=== PATIENT | male | born 1950 | race Two or more races ===

== ENCOUNTER → 2016-12-28 | Outpatient (CLI) | payer BC ==
[~2016-12-28] MED LIST: ALPR0.5T6 PO; DOXA4TAB3 PO; HYDR-2869 PO; IOHEXOL 240 MG/ML 50ML VIAL. ONE; IOHEXOL 300 MG/ML 75 ML VIAL. IV ONE; LISI40TA PO; METO25TA9 PO; NALO25TA PO; OMEP40CA5 PO; OXYC30TA PO; OXYC60TA7 PO
--- NOTE | 2016-12-28 14:06 | RAD ---
CT chest without, CT abdomen and pelvis with contrast 12/28/2016. Comparison: None. Clinical indication: Lung nodule. Technique: CT helical acquisition of the chest was obtained without contrast. Coronal and sagittal reformations were obtained. Multiple CT images of the abdomen and pelvis were obtained following uneventful intravenous administration of 75 mL Omnipaque 300. PQRS Compliance Statement: One or more of the following individualized dose reduction techniques were utilized for this examination: 1. Automated exposure control 2. Adjustment of the mA and/or kV according to patient size 3. Use of iterative reconstruction technique Findings: Chest: Heart size is normal without significant pericardial effusion. The thoracic aorta is normal in caliber with mild calcified atheromatous disease. Incidental note is made of separate origin of the left vertebral artery off the aortic arch, a normal variant. Three-vessel coronary artery calcifications. No axillary, mediastinal or hilar lymphadenopathy. The central airways are patent. There is mild centrilobular emphysema. There is a 6 mm noncalcified nodule in the lingula of the left upper lobe (series 5/image 177). There are patchy subpleural reticular opacities in both lung bases, likely scarring or atelectasis. There is a 5 mm linear subpleural opacity in the anterior right middle lobe which is favored to represent scarring. There are no destructive osseous lesions. Abdomen and pelvis: There is a 1.2 cm peripheral hepatic segment 7 have a density at the dome (series 2/image 8), unchanged since 04/12/2016 examination. No additional focal hepatic lesion. Prior cholecystectomy. No intra or extrahepatic biliary ductal dilatation. Major portal, splenic and visualized upper sparing mesenteric veins are widely patent. Spleen, adrenal glands unremarkable. Moderate fatty atrophy of the pancreas. Kidneys within normal limits. Prior there are no bifemoral bypass graft which is chronically occluded. [place] abdominal aorta is widely patent. No retroperitoneal or mesenteric lymphadenopathy. No abdominal free fluid. Small and large bowel loops are normal in caliber without obstruction. Mildly distended and unopacified urinary bladder, prostate seminal vesicles are unremarkable. No iliac or inguinal lymphadenopathy. No pelvic free fluid. Partial anterior ankylosis at L4-L5 and straightening of the lumbar spine. No destructive osseous lesions. Impression: Chest: 1. Stable 6 mm left upper lobe noncalcified pulmonary nodule since at least 06/01/2016 with no new pulmonary nodule. Follow-up noncontrast CT examination in 12 months is recommended to assess for stability. 2. Pulmonary emphysema. Abdomen and pelvis: 1. Stable small hepatic segment 7 hypodensity, consider benign in the absence of known or suspected malignancy.
== END | disposition home or self-care (01) ==
LOC: CT 10:49
PROVIDERS: ATTEND Family Medicine
DX: D37.6 Neoplasm of uncertain behavior of liver, gallbladder and bile ducts (principal); J43.9 Emphysema, unspecified; J43.2 Centrilobular emphysema; R91.1 Solitary pulmonary nodule; K86.89 Other specified diseases of pancreas
CPT/HCPCS: 71250; 74177; Q9966; Q9967

== ENCOUNTER → 2017-02-08 | Outpatient (CLI) | payer BC ==
[~2017-02-08] MED LIST changes: -IOHEXOL 240 MG/ML 50ML VIAL. ONE; -IOHEXOL 300 MG/ML 75 ML VIAL. IV ONE
--- NOTE | 2017-02-08 13:52 | RAD ---
CT abdomen/pelvis without contrast 02/08/2017 at 1331 hours Indication: Left flank pain for one week. Comparison: CT abdomen/pelvis 12/28/2016 Technique: Multiple axial CT images of the abdomen and pelvis were obtained without intravenous contrast. Coronal and sagittal reformats are provided. Findings:. There is dependent atelectasis at the right lung base. Heart size is within normal limits. The lack of intravenous contrast limits evaluation of the solid abdominal viscera. There are no suspicious hepatic masses. There is a stable hypodense lesion in the right hepatic dome felt to represent a simple hepatic cyst measuring 12 mm. Spleen, bilateral adrenal glands, and pancreas are within normal limits. Gallbladder is surgically absent. There is an infrarenal abdominal aortic aneurysm which measures 3.2 cm x 2.2 cm. Bilateral iliac stent grafts are noted. Evaluation is limited without intravenous contrast. There are no enlarged lymph nodes in the abdomen or pelvis. There is no free fluid within the abdomen or pelvis. There is no free intraperitoneal air. The kidneys appear symmetric. There are no renal calculi identified. No calculi identified along the ureters or urinary bladder. Urinary bladder is suboptimally evaluated given the degree of distention. Prostate and seminal vesicles are within normal limits. Small and large bowel are normal in caliber. No pericolonic inflammatory changes are present. There is osseous fusion of L4-L5. Laminectomy changes are identified at L4-L5. No suspicious osseous lesions are identified. Impression: 1. Aortobifemoral bypass graft is again noted with ectasia of the infrarenal abdominal aorta. Evaluation is limited by lack of intravenous contrast. 2. No evidence for obstructive uropathy. No renal calculi are identified. No calculi identified along the ureters or urinary bladder. No hydronephrosis. PQRS Compliance Statement: One or more of the following individualized dose reduction techniques were utilized for this examination: 1. Automated exposure control 2. Adjustment of the mA and/or kV according to patient size 3. Use of iterative reconstruction technique
== END | disposition home or self-care (01) ==
LOC: CT 13:23
PROVIDERS: ATTEND Family Medicine
DX: I77.811 Abdominal aortic ectasia (principal); J98.11 Atelectasis; N32.89 Other specified disorders of bladder; Z98.890 Other specified postprocedural states
CPT/HCPCS: 74176

== ENCOUNTER → 2017-04-19 | Outpatient (CLI) | payer BC, MEDICARE, OTHER ==
[~2017-04-19] MED LIST changes: +METO-239 PO; -METO25TA9 PO
--- NOTE | 2017-04-19 16:55 | RAD ---
Ultrasound of the abdominal aorta 04/19/2017 Indication: Peripheral vascular disease. History of aortofemoral bypass. Comparison study: CT of the abdomen and pelvis with contrast December 20, 2016. Discussion: Ultrasound evaluation of the abdominal aorta was performed. Static images are submitted to PACS. Exam is limited by patient body habitus. Post surgical changes consistent with aortobifemoral bypass noted. Visualized proximal aorta and mid abdominal aorta are nonaneurysmal. An aortic by femoral bypass graft appears to be in place. Both lumens appear to be grossly patent. Impression: Status post aortobifemoral bypass. Bypass graft is grossly patent without demonstrable abnormality.
== END | disposition home or self-care (01) ==
LOC: US 15:53
PROVIDERS: ATTEND Family Medicine
DX: I73.9 Peripheral vascular disease, unspecified (principal); Z98.890 Other specified postprocedural states
CPT/HCPCS: 76770

== ENCOUNTER 2017-06-07 09:11 | Inpatient (IN) | payer MEDICARE ==
[~2017-06-07] VITALS: Ht 177.8 cm; Wt 101.2 kg
[2017-06-07] MEDS ORDERED: 0.9 % SODIUM CHLORIDE 10 ML DISP.SYRIN. IV PRN (09:30)
[2017-06-07 09:50] LABS: BASO % 1 % (0-3); EOS # 0.4 x10^3/uL (0.0-0.7); EOS % 8 % (0-3); HEMATOCRIT 42.1 % (39.0-53.0); HEMOGLOBIN 14.2 g/dL (13.0-17.5); LYMPH # 0.7 x10^3/uL (1.0-4.8); LYMPH % 14 % (24-48); MEAN CORPUSCULAR HEMOGLOBIN 30 pg (25-35); MEAN CORPUSCULAR HGB CONC 34 g/dL (31-37); MEAN CORPUSCULAR VOLUME 89 fL (79-100); MONO # 0.4 x10^3/uL (0.0-1.1); MONO % 8 % (0-9); NEUT # 3.4 x10^3uL (1.8-7.7); NEUT % 69 % (31-73); PLATELET COUNT 112 x10^3/uL (140-400); RED BLOOD COUNT 4.73 x10^6/uL (4.30-5.70); RED CELL DISTRIBUTION WIDTH 14.4 % (11.5-14.5); WHITE BLOOD COUNT 4.9 x10^3/uL (4.0-11.0)
[2017-06-07] MEDS ORDERED: IPRATRPIUM/ALBUTEROL 0.5/2.5MG 3 ML NEBU. NEB ONE ×2 (10:00→13:00)
[2017-06-07 10:08] LABS: ALBUMIN 3.5 g/dL (3.4-5.0); ALBUMIN/GLOBULIN RATIO 0.9 (1.0-1.7); CALCIUM 8.9 mg/dL (8.5-10.1); CREATININE 0.8 mg/dL (0.7-1.3); MAGNESIUM 1.9 mg/dL (1.8-2.4); POTASSIUM 4.9 mmol/L (3.5-5.1); TOTAL BILIRUBIN 0.6 mg/dL (0.2-1.0); TOTAL PROTEIN 7.3 g/dL (6.4-8.2)
--- NOTE | 2017-06-07 10:15 | RAD ---
INDICATION: sob COMPARISON: 03/17/2015 FINDINGS: 2 view of chest obtained. Suspected 6-7 mm nodule left lower lung. Cardiac silhouette is not grossly enlarged. Mild coarsening of the lung markings bilaterally. Mild haziness retrocardiac region. IMPRESSION: Mild haziness retrocardiac region. Could be secondary to overlap of structures or atelectasis but if there is high clinical concern for infection an early infiltrate is not excluded. Suspected left lower lung pulmonary nodule. Follow-up could be obtained to ensure no growth. Coarsened lung markings bilaterally. Could be secondary to chronic lung disease
--- NOTE | 2017-06-07 10:26 | PHYS DOC ---
Past History Past Medical History: COPD, Hypertension Smoking: Non-smoker Adult General Chief Complaint Chief Complaint: SHORTNESS OF BREATH HPI HPI 67-year-old male patient with history of COPD with when necessary home oxygen complaining of increasing exertional shortness of breath intermittently for the last 2 months with several antibiotic treatment. Patient complaining of increasing shortness of breath and productive cough with greenish sputum for the last 5 days that did not get better with doxycycline started by his primary care physician order 4 days ago. She complaining of chest soreness during episodes of cough and generalized weakness without fever, chills, vomiting, urinary symptom. Patient states he had a couple episodes of diarrhea yesterday without abdominal pain. Review of Systems Review of Systems Constitutional: Denies fever or chills [] Eyes: Denies change in visual acuity, redness, or eye pain [] HENT: Denies nasal congestion or sore throat [] Respiratory: Reports cough and shortness of breath [] Cardiovascular: No additional information not addressed in HPI [] GI: Denies abdominal pain, nausea, vomiting, bloody stools or diarrhea [] : Denies dysuria or hematuria [] Musculoskeletal: Denies back pain or joint pain [] Integument: Denies rash or skin lesions [] Neurologic: Denies headache, focal weakness or sensory changes [] Endocrine: Denies polyuria or polydipsia [] All other systems were reviewed and found to be within normal limits, except as documented in this note. Current Medications Current Medications Current Medications Medications (Trade) Dose Ordered Sig/Dagmar Start Time Stop Time Status Last Admin Dose Admin Albuterol/ Ipratropium (Duoneb) 3 ml 1X ONCE 06/07/17 10:00 06/07/17 10:01 DC Sodium Chloride (Normal Saline Flush) 10 ml QSHIFT PRN 06/07/17 09:30 Allergies Allergies Allergies Coded Allergies Type Severity Reaction Last Updated Verified No Known Drug Allergies 06/01/16 No Physical Exam Physical Exam Constitutional: Well developed, well nourished, mild distress, non-toxic appearance. [] HENT: Normocephalic, atraumatic, bilateral external ears normal, oropharynx moist, no oral exudates, nose normal. [] Eyes: PERRLA, EOMI, conjunctiva normal, no discharge. [] Neck: Normal range of motion, no tenderness, supple, no stridor. [] Cardiovascular:Heart rate regular rhythm, no murmur [] Lungs & Thorax: Decreased air movement bilaterally, mild wheezing and rhonchi bilaterally Abdomen: Bowel sounds normal, soft, no tenderness, no masses, no pulsatile masses. [] Skin: Warm, dry, no erythema, no rash. [] Back: No tenderness, no CVA tenderness. [] Extremities: No tenderness, no cyanosis, no clubbing, ROM intact, 1+ lower bilateral extremity edema. [] Neurologic: Alert and oriented X 3, normal motor function, normal sensory function, no focal deficits noted. [] Psychologic: Affect normal, judgement normal, mood normal. [] Current Patient Data Lab Results Laboratory Tests Test 06/07/17 09:32 White Blood Count 4.9 x10^3/uL (4.0-11.0) Red Blood Count 4.73 x10^6/uL (4.30-5.70) Hemoglobin 14.2 g/dL (13.0-17.5) Hematocrit 42.1 % (39.0-53.0) Mean Corpuscular Volume 89 fL (79-100) Mean Corpuscular Hemoglobin 30 pg (25-35) Mean Corpuscular Hemoglobin Concent 34 g/dL (31-37) Red Cell Distribution Width 14.4 % (11.5-14.5) Platelet Count 112 x10^3/uL (140-400) L Neutrophils (%) (Auto) 69 % (31-73) Lymphocytes (%) (Auto) 14 % (24-48) L Monocytes (%) (Auto) 8 % (0-9) Eosinophils (%) (Auto) 8 % (0-3) H Basophils (%) (Auto) 1 % (0-3) Neutrophils # (Auto) 3.4 x10^3uL (1.8-7.7) Lymphocytes # (Auto) 0.7 x10^3/uL (1.0-4.8) L Monocytes # (Auto) 0.4 x10^3/uL (0.0-1.1) Eosinophils # (Auto) 0.4 x10^3/uL (0.0-0.7) Basophils # (Auto) 0.0 x10^3/uL (0.0-0.2) Prothrombin Time 11.1 SEC (9.4-11.4) Prothrombin Time INR 1.1 (0.9-1.1) Sodium Level 141 mmol/L (136-145) Potassium Level 4.9 mmol/L (3.5-5.1) Chloride Level 102 mmol/L (98-107) Carbon Dioxide Level 35 mmol/L (21-32) H Anion Gap 4 (6-14) L Blood Urea Nitrogen 14 mg/dL (8-26) Creatinine 0.8 mg/dL (0.7-1.3) Estimated GFR (Cockcroft-Gault) 97.0 BUN/Creatinine Ratio 18 (6-20) Glucose Level 110 mg/dL (70-99) H Lactic Acid Level 1.1 mmol/L (0.4-2.0) Calcium Level 8.9 mg/dL (8.5-10.1) Magnesium Level 1.9 mg/dL (1.8-2.4) Total Bilirubin 0.6 mg/dL (0.2-1.0) Aspartate Amino Transferase (AST) 22 U/L (15-37) Alanine Aminotransferase (ALT) 29 U/L (16-63) Alkaline Phosphatase 78 U/L (46-116) Creatine Kinase 196 U/L (39-308) Troponin I Quantitative < 0.017 ng/mL (0-0.055) GR-Dln-D-Type Natriuretic Peptide 80 pg/mL (0-124) Total Protein 7.3 g/dL (6.4-8.2) Albumin 3.5 g/dL (3.4-5.0) Albumin/Globulin Ratio 0.9 (1.0-1.7) L EKG EKG EKG interpreted by me. EKG at 0926 showed sinus bradycardia at rate of 59, leftward axis, no acute ST and T wave abnormality, poor R-wave progress in anteroseptal leads[] Radiology/Procedures Radiology/Procedures [] Course & Med Decision Making Course & Med Decision Making Pertinent Labs and Imaging studies reviewed. (See chart for details) Evaluation of patient in ER showed 67-year-old male patient with history of COPD with PRN home oxygen and from his primary care physician office because of shortness of breath and O2 sats of 73% at room air. Patient had O2 sat of 91-92 % at room air. Patient had diffuse wheezing and rhonchi without respiratory distress. Labs was unremarkable. Chest x-ray showed old changes with possible infiltration in left lung and a small left lung nodule. Patient was treated with antibiotic his primary care physician and did not get better. Plan to admit patient with diagnosis of COPD exacerbation for IV antibiotic treatment. Patient primary care physician was consulted and the patient should not take steroid because he is taking large amounts of narcotic pain medication. Dr Quintero accepted admitting the patient patient at 1036. Dragon Disclaimer Dragon Disclaimer This electronic medical record was generated, in whole or in part, using a voice recognition dictation system. Departure Departure: Impression: Primary Impression: Acute exacerbation of chronic obstructive pulmonary disease Additional Impressions: Hypoxemia Nodule of left lung Disposition: ADMITTED INPATIENT (At 1036) Admitting Physician: Tony Quintero Condition: IMPROVED Referrals: DEBBIE TEAGUE MD (PCP) Problem Qualifiers JEANINE RUCKER MD Jun 07, 2017 10:26
[2017-06-07] MEDS ORDERED: AZITHROMYCIN 500 MG in IV NORMAL SALINE 250ML 250 ML IV ONE (10:45)
[2017-06-07 10:54] LABS: BILIRUBIN,URINE NEG (NEG); CLARITY,URINE CLEAR; COLOR,URINE AMBER; GLUCOSE,URINE NEG (NEG)
[2017-06-07 10:55] LABS: BACTERIA,URINE 0 /HPF (0-FEW); NITRITE,URINE NEG (NEG); RBC,URINE 0 /HPF (0-2); SQUAMOUS EPITHELIAL CELL,UR OCC /LPF; UROBILINOGEN,URINE 0.2 mg/dL (0.2 mg/dL); WBC,URINE OCC /HPF (0-4)
--- NOTE | 2017-06-07 10:58 | EKG ---
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
[2017-06-07] MEDS ORDERED: methylPREDNISolone SOD SUCC PF 125 MG/2 ML VIAL. IV ONE (11:15)
[2017-06-07] MEDS ORDERED: IV NORMAL SALINE 250ML 250 ML ONE (12:45)
[2017-06-07] MEDS ORDERED: IV NORMAL SALINE 50ML 50 ML ONE (12:45)
[2017-06-07] MEDS ORDERED: AZITHROMYCIN 500 MG VIAL. IV ONE (12:46)
[2017-06-07] MEDS ORDERED: cefTRIAXone SODIUM 1 GM VIAL IV ONE (12:46)
[2017-06-07] MEDS: cefTRIAXone IV Push 1 GM VIAL. IVP SCH (12:58)
[2017-06-07] MEDS ORDERED: DOCU-109 PO (15:16)
[2017-06-07] MEDS ORDERED: ALBU1.25 NEB (15:16)
[2017-06-07] MEDS ORDERED: TIOT18CA IH (15:16)
[2017-06-07] MEDS ORDERED: FLUT16SP21 NS (15:16)
[2017-06-07] MEDS ORDERED: DOXA4TAB2 PO (15:16)
[2017-06-07] MEDS ORDERED: ALBU8.5H8 INH (15:16)
[2017-06-07 16:13] VITALS: BP 158/103
[2017-06-07] MEDS ORDERED: ALBUTEROL SULFATE 8GM INHALER. INH PRN (17:00)
[2017-06-07] MEDS ORDERED: NON FORMULARY ITEM (Albuterol Sulfate (Albuterol Sulfate Neb Soln) 1 VIAL) NEB PRN (17:00)
[2017-06-07] MEDS ORDERED: ALBUTEROL SULFATE 2.5 MG/3 ML NEBU. NEB PRN (17:30)
[2017-06-07 20:00] VITALS: BP 177/73
[2017-06-07] MEDS: DOXAZOSIN MESYLATE 4 MG TABLET PO SCH (20:57)
[2017-06-07] MEDS: PANTOPRAZOLE 40 MG TABLET. PO SCH (20:58)
[2017-06-07] MEDS: DOCUSATE SODIUM 100 MG CAPSULE PO SCH (20:58)
[2017-06-07] MEDS: oxyCODONE ER 15 MG TAB.ER.12H PO SCH (20:59)
[2017-06-07] MEDS: methylPREDNISolone SOD SUCC PF 40 MG/ML VIAL. IV SCH (20:59)
[2017-06-07] MEDS: ALPRAZolam 0.5 MG TABLET PO PRN (21:06)
--- NOTE | 2017-06-07 21:39 | HP ---
ADMIT DATE: 06/07/2017 HISTORY OF PRESENT ILLNESS: The patient is a 67-year-old male patient who was seen today at his primary care physician with increasing shortness of breath for the last 2 months with several antibiotic treatment, is complaining of increasing shortness of breath and productive cough with yellow sputum for the last 5 days and did not get better with doxycycline started by his primary care physician that was ordered about 4 days ago, complaining of chest soreness during episodes of cough and generalized weakness without fever, chills, vomiting or any other problems. He was evaluated in the Emergency Room. He was found to be afebrile. His white cell count was normal. His chest x-ray showed that he has mild haziness in the retrocardiac region, could be secondary to overlap of structures or atelectasis. There is high clinical concern for an infection. Early infiltrate is not excluded. The patient was admitted with an acute exacerbation of chronic obstructive pulmonary disease, hypoxemia and was started on IV antibiotic, IV Solu-Medrol and decide on further management accordingly. PAST MEDICAL HISTORY: Significant for COPD, hypertension, osteoarthritis, abdominal aortic aneurysm repair. He also has benign prostatic hypertrophy and chronic pain syndrome. PAST SURGICAL HISTORY: Significant for back surgery, right arthroscopic knee surgery, cholecystectomy, appendectomy, esophagogastroduodenoscopy and colonoscopy. ALLERGIES: HE IS ALLERGIC TO KEFLEX. MEDICATIONS: He is currently on following medications: Albuterol sulfate for ProAir 1 inhalation every 4 hours, albuterol sulfate by nebulizer every 4 hours as needed, alprazolam 0.5 mg once a day for anxiety and agitation, Colace 100 mg once a day, doxazosin for Cardura 1 tablet at bedtime, Flonase 1 spray to each nostril twice a day, hydralazine 50 mg 3 times a day, lisinopril 40 mg once a day, metoprolol succinate 25 mg once a day, Movantik 25 mg p.o. daily, omeprazole 40 mg once a day, oxycodone for OxyContin 60 mg twice a day and oxycodone 50 mg p.o. daily, tiotropium bromide for Spiriva HandiHaler 1 inhalation once a day. FAMILY HISTORY: He has 3 sisters younger and healthy. One brother due to alcoholism. Father because of sepsis. Mother in her 40s because of liver cancer. SOCIAL HISTORY: He is and lives with his father, he has 3 sons and 1 daughter. He takes care of the custody of his 2 granddaughters. He is an ex-smoker, stopped smoking in 2005. He does not drink alcohol. 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 REVIEW OF SYSTEMS: The patient denied any blurring of vision, cataract, glaucoma or macular degeneration. Denied any earache, tinnitus or sensorineural deafness. Denied any nosebleeds, stuffy nose or postnasal drip. Denied any sore throat, sore tongue, toothache, hoarseness of voice or difficulty swallowing. Denied any nausea, vomiting, diarrhea or constipation. Denied any hematemesis, melena or hematochezia. Denied any dysuria, frequency, hematuria. Did complain of chest tightness and discomfort, cough with whitish sputum, shortness of breath and chest wheezing. Denied any chills, rigors or fever. Denied any dizziness, lightheadedness or vertigo. PHYSICAL EXAMINATION: GENERAL: When I examined him, he looked well and was clearly in no apparent distress, slightly pale, but no jaundice, cyanosis or thyromegaly. No jugular venous distension. No limb edema. VITAL SIGNS: His heart rate was 64, blood pressure was 158/103, temperature was 98.3, respiratory rate was 16 and oxygen saturation was 94%. HEAD, EYES, EARS, NOSE AND THROAT: Showed normocephalic, atraumatic. NECK: Supple. HEART: Showed normal first and second sounds. No gallop, rub or murmur. CHEST: Shows central trachea, equally reduced expansion, reduced air entry, vesicular breath sounds with few scattered rhonchi, I could not appreciate any crepitation. ABDOMEN: Distended, soft, nontender. No guarding or rigidity. No organomegaly. Hernial orifice intact. Bowel sounds normal. NEUROLOGIC: He is awake, alert, responding appropriately. Cranial nerves intact. EXTREMITIES: He moves extremities without difficulty. He managed to ambulate for short distances because of his back pain and also shortness of breath. LABORATORY DATA: This morning showed a serum sodium 141, potassium 4.9, chloride 102, bicarbonate 35, anion gap of 4, BUN 14, creatinine 0.8. Estimated GFR was 97 mL per minute, his glucose 110, calcium was 8.9, magnesium was 1.9. Total bilirubin, AST, ALT, alkaline phosphatase were normal. His total protein was 7.3, albumin was 3.5. Hematology showed a white cell count of 4900, hemoglobin 14, hematocrit 42, MCV 89 and platelet count of 112,000. His prothrombin time is 11.1, INR 1.1. Urinalysis was unremarkable. His chest x-ray showed mild haziness in the retrocardiac region could be secondary to overlap of structures, atelectasis, but if there is a high clinical suspicion for infection, early infiltrate is not excluded. He has suspected left lower lung pulmonary nodule. Followup could be obtained to ensure no growth, coarsened lung markings bilaterally could be secondary to chronic lung disease. ASSESSMENT AND PLAN: The patient was admitted with community-acquired pneumonia, was started on ceftriaxone and Zithromax. Continue with the bronchodilators and steroids and repeat his lab work tomorrow and decide on further management accordingly. JOHANNA SLATER MD DR: UYEN/catherine JOB#: [id number] / [id number]
[2017-06-07] MEDS: IPRATRPIUM/ALBUTEROL 0.5/2.5MG 3 ML NEBU. NEB SCH (21:48)
[2017-06-08] VITALS (7 sets, daily range): BP systolic 108–158; BP diastolic 49–84
[2017-06-08] MEDS: IPRATRPIUM/ALBUTEROL 0.5/2.5MG 3 ML NEBU. NEB SCH ×4 (06:01→21:13)
[2017-06-08] MEDS: NALOXEGOL OXALATE 25 MG TABLET. PO SCH (06:24)
[2017-06-08] MEDS: methylPREDNISolone SOD SUCC PF 40 MG/ML VIAL. IV SCH ×3 (06:24→22:10)
[2017-06-08] MEDS ORDERED: PANTOPRAZOLE 40 MG TABLET. PO SCH (07:30)
[2017-06-08] MEDS: FLUTICASONE 50MCG/NASAL SPRAY 16GM BOTTLE. NS SCH (08:58)
[2017-06-08] MEDS ORDERED: NON FORMULARY ITEM (Tiotropium Bromide (Spiriva) 1 CAP) IH SCH (09:00)
[2017-06-08] MEDS ORDERED: oxyCODONE IR 5 MG TABLET PO SCH ×2 (09:00→14:00)
[2017-06-08] MEDS ORDERED: DOCUSATE SODIUM 100 MG CAPSULE PO SCH (09:00)
[2017-06-08] MEDS: LISINOPRIL 20 MG TABLET PO SCH (09:00)
[2017-06-08] MEDS: oxyCODONE ER 15 MG TAB.ER.12H PO SCH ×2 (09:00→20:34)
[2017-06-08] MEDS: METOPROLOL SUCC 24HR ER 25 MG TAB.ER.24H. PO SCH (09:01)
[2017-06-08] MEDS: AZITHROMYCIN 250 MG TABLET. PO SCH (09:02)
[2017-06-08] MEDS: cefTRIAXone IV Push 1 GM VIAL. IVP SCH (13:45)
[2017-06-08] MEDS: PANTOPRAZOLE 40 MG TABLET. PO SCH (20:31)
[2017-06-08] MEDS: LACTOBACILLUS RHAMNOSUS GG 1 CAPSULE. PO SCH (20:31)
[2017-06-08] MEDS: CAPSAICIN 0.025% TOPICAL CREAM 60GM TUBE. TP SCH (20:31)
[2017-06-08] MEDS: ALPRAZolam 0.5 MG TABLET PO PRN (20:32)
[2017-06-08] MEDS: DOCUSATE SODIUM 100 MG CAPSULE PO SCH (20:32)
[2017-06-08] MEDS: DOXAZOSIN MESYLATE 4 MG TABLET PO SCH (20:32)
[2017-06-09 03:00] VITALS: BP 136/78
[2017-06-09] MEDS: IPRATRPIUM/ALBUTEROL 0.5/2.5MG 3 ML NEBU. NEB SCH ×2 (05:56→10:12)
[2017-06-09 05:59] VITALS: BP 139/75
[2017-06-09] MEDS: methylPREDNISolone SOD SUCC PF 40 MG/ML VIAL. IV SCH ×2 (06:10→12:45)
[2017-06-09] MEDS: NALOXEGOL OXALATE 25 MG TABLET. PO SCH (06:10)
[2017-06-09 06:42] LABS: HEMATOCRIT 41.5 % (39.0-53.0); HEMOGLOBIN 13.8 g/dL (13.0-17.5); RED BLOOD COUNT 4.68 x10^6/uL (4.30-5.70); RED CELL DISTRIBUTION WIDTH 14.3 % (11.5-14.5); WHITE BLOOD COUNT 5.9 x10^3/uL (4.0-11.0)
[2017-06-09 06:57] LABS: ALBUMIN 3.2 g/dL (3.4-5.0); ALBUMIN/GLOBULIN RATIO 0.9 (1.0-1.7); CALCIUM 8.7 mg/dL (8.5-10.1); CREATININE 0.7 mg/dL (0.7-1.3); GFR 113.2; POTASSIUM 4.8 mmol/L (3.5-5.1); TOTAL BILIRUBIN 0.3 mg/dL (0.2-1.0); TOTAL PROTEIN 6.7 g/dL (6.4-8.2)
[2017-06-09 07:40] VITALS: BP 142/68
[2017-06-09] MEDS: FLUTICASONE 50MCG/NASAL SPRAY 16GM BOTTLE. NS SCH (08:37)
[2017-06-09] MEDS: LACTOBACILLUS RHAMNOSUS GG 1 CAPSULE. PO SCH (08:38)
[2017-06-09] MEDS: LISINOPRIL 20 MG TABLET PO SCH (08:39)
[2017-06-09] MEDS: AZITHROMYCIN 250 MG TABLET. PO SCH (08:40)
[2017-06-09] MEDS: METOPROLOL SUCC 24HR ER 25 MG TAB.ER.24H. PO SCH (08:40)
[2017-06-09] MEDS: oxyCODONE ER 15 MG TAB.ER.12H PO SCH (08:44)
[2017-06-09] MEDS: CAPSAICIN 0.025% TOPICAL CREAM 60GM TUBE. TP SCH (08:49)
[2017-06-09] MEDS ORDERED: FLU VACC QS2017-18 (36MOS+)/PF 0.5 ML SYRINGE. VAX IM ONE (09:00)
[2017-06-09] MEDS ORDERED: PNEUMOC CONJ VACC 23-VALENT 0.5 ML VIAL. VAX IM ONE (09:00)
[2017-06-09 11:48] VITALS: BP 155/67
[2017-06-09] MEDS ORDERED: AZIT250T PO (12:24)
[2017-06-09] MEDS ORDERED: CEFP200T PO (12:24)
[2017-06-09] MEDS ORDERED: PRED20TA PO (12:24)
[2017-06-09] MEDS: cefTRIAXone IV Push 1 GM VIAL. IVP SCH (12:46)
--- NOTE | 2017-06-09 14:46 | PN ---
DATE: 06/08/2017 SUBJECTIVE: The patient is resting, slightly propped up in bed, in no apparent respiratory distress. He is awake, alert. On questioning him, he stated that he is feeling much better and no more chest tightness or wheezing, has been up and about though continued to saturate on exertion. PHYSICAL EXAMINATION: GENERAL: When I examined him, he looked pale, no jaundice, cyanosis, or thyromegaly. No jugular venous distension. No lower limb edema. VITAL SIGNS: His heart rate was 68, blood pressure 140/57, temperature was 98.1, respiratory rate was 18 and oxygen saturation was 93% on 2 liters of oxygen. HEAD, EYES, EARS, NOSE AND THROAT: Showed normocephalic, atraumatic. NECK: Supple with no lymphadenopathy, no thyromegaly. No jugular venous distension. No audible bruits. HEART: Showed normal first and second heart sounds. No gallop, rub or murmur. CHEST: Showed central trachea, equal bilateral expansion, air entry, vesicular sounds, very few scattered rhonchi. I could not really appreciate any crepitation. ABDOMEN: Distended, soft, nontender. NEUROLOGIC: He is awake, alert, responding appropriately. Cranial nerves intact. EXTREMITIES: He moves extremities without difficulty, ambulates without assistance or assistive devices. His intake was 480 and no output was recorded. LABORATORY DATA: As of this morning showed a white cell count of 4900, hemoglobin 14, hematocrit 42, MCV 89 and platelet count of 112,000. His chemistry showed a serum sodium 141, potassium 4.9, chloride 102, bicarbonate 35, anion gap of 4, BUN 14, creatinine 0.8. ASSESSMENT: 1. Community-acquired pneumonia. 2. Chronic obstructive pulmonary disease exacerbation. 3. Hypertension. 4. Osteoarthritis. 5. Benign prostatic hypertrophy. 6. Chronic pain syndrome. PLAN: My plan is to continue with IV antibiotic. Continue with pain management. Continue with steroids as well as bronchodilator and doxazosin for benign prostatic hypertrophy. I will repeat lab works tomorrow. JOHANNA SLATER MD DR: UYEN/catherine JOB#: [id number] / [id number]
--- NOTE | 2017-06-09 21:55 | DS ---
DATE OF DISCHARGE: 06/09/2017 HOSPITAL COURSE: The patient is sitting comfortably, eating his lunch comfortably, in no apparent distress. On questioning him, he stated that he is feeling much better. Occasionally, has some chest tightness, but generally he is much improved and would like to go home. PHYSICAL EXAMINATION: GENERAL: When I examined him, he looked well and was clearly in no apparent respiratory distress. No pallor, jaundice, cyanosis, or thyromegaly. No jugular venous distension. No limb edema. VITAL SIGNS: His heart rate was 70, blood pressure 155/67, temperature was 98, respiratory rate was 20, and oxygen saturation was 95% on 2 liters of oxygen. HEAD, EYES, EARS, NOSE AND THROAT: Showed normocephalic, atraumatic. NECK: Supple. HEART: Showed normal first and second heart sounds. No gallop, rub or murmur. CHEST: Clear to auscultation. No crepitation or rhonchi. ABDOMEN: Distended, soft, nontender. No guarding or rigidity. No organomegaly. All hernial orifice intact. Bowel sounds normal. NEUROLOGIC: He was awake, alert, responding appropriately and intact. He moves extremities without difficulty. He ambulates without assistance or assistive devices. His intake was 1560, output was 300. LABORATORY DATA: Her lab work this morning showed a white cell count 5900, hemoglobin 13.8, hematocrit 41.5, MCV 89 and platelet count of 121,000. His chemistry showed a serum sodium 142, potassium 4.8, chloride 105, bicarbonate 33, anion gap of 4, BUN 17, creatinine 0.7, estimated GFR was 113 mL per minute, his glucose 117, calcium was 8.7. Total bilirubin, AST, ALT, alkaline phosphatase were normal. Total protein was 6.7, albumin 3.2. Blood cultures are so far negative. DISCHARGE MEDICATIONS: The patient was discharged home to continue on Vantin 200 mg twice a day for 7 days, Zithromax 250 mg once a day for 7 days, prednisone tapering course. Should continue all his home medication. FINAL DISCHARGE DIAGNOSES: 1. Community-acquired pneumonia. 2. Chronic obstructive pulmonary disease exacerbation. 3. Acute hypoxic respiratory failure. Other medical problems include hypertension, generalized osteoarthritis, benign prostatic hypertrophy and chronic pain syndrome. The patient should follow with his primary care physician in 7-10 days. JOHANNA SLATER MD DR: Justin JOB#: [id number] / [id number]
== END 2017-06-09 13:35 | disposition home or self-care (01) | DRG 193 ==
LOC: ER 09:11 → ICU 10:44
PROVIDERS: ADMIT Internal Medicine; ATTEND Internal Medicine
DX: J18.9 Pneumonia, unspecified organism (principal); J96.01 Acute respiratory failure with hypoxia; J44.0 Chronic obstructive pulmonary disease with (acute) lower respiratory infection; J44.1 Chronic obstructive pulmonary disease with (acute) exacerbation; G89.4 Chronic pain syndrome; I10 Essential (primary) hypertension; R07.89 Other chest pain; R91.1 Solitary pulmonary nodule; M15.9 Polyosteoarthritis, unspecified; N40.0 Benign prostatic hyperplasia without lower urinary tract symptoms; Z80.0 Family history of malignant neoplasm of digestive organs; Z86.79 Personal history of other diseases of the circulatory system; Z87.891 Personal history of nicotine dependence; Z90.49 Acquired absence of other specified parts of digestive tract; Z88.8 Allergy status to other drugs, medicaments and biological substances
CPT/HCPCS: 36415; 71046; 80053; 81001; 82550; 83605; 83735; 83880; 84484; 85025; 85027; 85610; 87040; 87641; 93005; 94640; J0456; J0696; J2920; J2930; J7050; J7613; J7620

== ENCOUNTER 2017-06-20 16:33 | Inpatient (IN) | payer MEDICARE ==
[~2017-06-20] VITALS: Ht 177.8 cm; Wt 58.1 kg
[~2017-06-20 16:33] MED LIST changes: +ALBU1.25 NEB; +ALBU8.5H8 INH; +AZIT250T PO; +CEFP200T PO; +DOCU-109 PO; +DOXA4TAB2 PO; +FLUT16SP21 NS; +PRED20TA PO; +TIOT18CA IH
[2017-06-20] MEDS ORDERED: IPRATRPIUM/ALBUTEROL 0.5/2.5MG 3 ML NEBU. ONE (16:44)
[2017-06-20] MEDS ORDERED: IPRATRPIUM/ALBUTEROL 0.5/2.5MG 3 ML NEBU. NEB ONE (17:00)
[2017-06-20] MEDS ORDERED: methylPREDNISolone SOD SUCC PF 125 MG/2 ML VIAL. IV ONE (17:00)
[2017-06-20] MEDS ORDERED: 0.9 % SODIUM CHLORIDE 10 ML DISP.SYRIN. IV ONE (17:00)
[2017-06-20 17:37] LABS: BASO % 1 % (0-3); EOS % 1 % (0-3); HEMATOCRIT 44.9 % (39.0-53.0); HEMOGLOBIN 14.9 g/dL (13.0-17.5); LYMPH # 0.7 x10^3/uL (1.0-4.8); LYMPH % 15 % (24-48); MEAN CORPUSCULAR HEMOGLOBIN 30 pg (25-35); MEAN CORPUSCULAR HGB CONC 33 g/dL (31-37); MEAN CORPUSCULAR VOLUME 89 fL (79-100); MONO # 0.3 x10^3/uL (0.0-1.1); MONO % 7 % (0-9); NEUT # 3.5 x10^3uL (1.8-7.7); NEUT % 77 % (31-73); PLATELET COUNT 100 x10^3/uL (140-400); RED BLOOD COUNT 5.02 x10^6/uL (4.30-5.70); RED CELL DISTRIBUTION WIDTH 14.8 % (11.5-14.5); WHITE BLOOD COUNT 4.5 x10^3/uL (4.0-11.0)
--- NOTE | 2017-06-20 18:09 | EKG ---
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
--- NOTE | 2017-06-20 18:13 | PHYS DOC ---
Past History Past Medical History: COPD, Hypertension Past Surgical History: Cholecystectomy Smoking: Non-smoker Alcohol Use: None Drug Use: None Adult General Chief Complaint Chief Complaint: SHORTNESS OF BREATH HPI HPI 67-year-old male patient with history of COPD on nighttime oxygen and recent hospitalization because of hypoxia was discharged from Hospital one week ago with improvement of his condition. Patient states he had mild activity and after that his oxygen up to 70s and his physician recommended to take 1 L of oxygen during daytime and he started to wearing oxygen today but his O2 sat continued to drop with mild activity and his physician recommended to come to ER. Patient denies fever and chills, cough, chest pain, extremity edema. Patient had O2 sats of 88% at arrival to ER. Review of Systems Review of Systems Constitutional: Denies fever or chills [] Eyes: Denies change in visual acuity, redness, or eye pain [] HENT: Denies nasal congestion or sore throat [] Respiratory: Denies cough, reports shortness of breath [] Cardiovascular: No additional information not addressed in HPI [] GI: Denies abdominal pain, nausea, vomiting, bloody stools or diarrhea [] : Denies dysuria or hematuria [] Musculoskeletal: Denies back pain or joint pain [] Integument: Denies rash or skin lesions [] Neurologic: Denies headache, focal weakness or sensory changes [] Endocrine: Denies polyuria or polydipsia [] All other systems were reviewed and found to be within normal limits, except as documented in this note. Current Medications Current Medications Current Medications Medications (Trade) Dose Ordered Sig/Dagmar Start Time Stop Time Status Last Admin Dose Admin Albuterol/ Ipratropium (Duoneb) 3 ml 1X ONCE 06/20/17 17:00 06/20/17 17:02 DC Methylprednisolone Sodium Succinate (SOLU-Medrol 125MG VIAL) 125 mg 1X ONCE 06/20/17 17:00 06/20/17 17:02 DC 06/20/17 17:43 125 MG Sodium Chloride (Normal Saline Flush) 10 ml 1X ONCE 06/20/17 17:00 06/20/17 17:02 DC Allergies Allergies Allergies Coded Allergies Type Severity Reaction Last Updated Verified cephalexin Allergy Severe severe rash, itching 06/09/17 Yes Physical Exam Physical Exam Constitutional: Well developed, well nourished, mild distress, non-toxic appearance. [] HENT: Normocephalic, atraumatic, bilateral external ears normal, oropharynx moist, no oral exudates, nose normal. [] Eyes: PERRLA, EOMI, conjunctiva normal, no discharge. [] Neck: Normal range of motion, no tenderness, supple, no stridor. [] Cardiovascular:Heart rate regular rhythm, no murmur [] Lungs & Thorax: decrease of air movement Abdomen: Bowel sounds normal, soft, no tenderness, no masses, no pulsatile masses. [] Skin: Warm, dry, no erythema, no rash. [] Back: No tenderness, no CVA tenderness. [] Extremities: No tenderness, no cyanosis, no clubbing, ROM intact, no edema. [] Neurologic: Alert and oriented X 3, normal motor function, normal sensory function, no focal deficits noted. [] Psychologic: Affect normal, judgement normal, mood normal. [] Current Patient Data Vital Signs Vital Signs Date Time Temp Pulse Resp B/P (MAP) Pulse Ox O2 Delivery O2 Flow Rate FiO2 06/20/17 16:33 98.2 60 20 88 Room Air Lab Results Laboratory Tests Test 06/20/17 17:25 White Blood Count 4.5 x10^3/uL (4.0-11.0) Red Blood Count 5.02 x10^6/uL (4.30-5.70) Hemoglobin 14.9 g/dL (13.0-17.5) Hematocrit 44.9 % (39.0-53.0) Mean Corpuscular Volume 89 fL (79-100) Mean Corpuscular Hemoglobin 30 pg (25-35) Mean Corpuscular Hemoglobin Concent 33 g/dL (31-37) Red Cell Distribution Width 14.8 % (11.5-14.5) H Platelet Count 100 x10^3/uL (140-400) L Neutrophils (%) (Auto) 77 % (31-73) H Lymphocytes (%) (Auto) 15 % (24-48) L Monocytes (%) (Auto) 7 % (0-9) Eosinophils (%) (Auto) 1 % (0-3) Basophils (%) (Auto) 1 % (0-3) Neutrophils # (Auto) 3.5 x10^3uL (1.8-7.7) Lymphocytes # (Auto) 0.7 x10^3/uL (1.0-4.8) L Monocytes # (Auto) 0.3 x10^3/uL (0.0-1.1) Eosinophils # (Auto) 0.0 x10^3/uL (0.0-0.7) Basophils # (Auto) 0.0 x10^3/uL (0.0-0.2) Lactic Acid Level 1.8 mmol/L (0.4-2.0) EKG EKG EKG interpreted by me. EKG at 1652 showed sinus bradycardia at rate of 58, poor R-wave progress in anterior leads, no acute distress and T-wave abnormalities Radiology/Procedures Radiology/Procedures My interpretation of chest x-ray shows patchy infiltrates with some basilar atelectasis and findings of COPD/emphysema. My interpretation of CT shows diffuse emphysematous changes. Some scattered atelectasis. No findings of large pulmonary embolism in central vessels. See formal report when available[] Course & Med Decision Making Course & Med Decision Making Pertinent Labs and Imaging studies are pending. Patient care transferred to Dr. Levin at 1800. Impression: 1. Acute on chronic respiratory failure- hypoxia 2. Thrombocytopenia 3. Elevated d-dimer 4. Malnutrition 5. Emphysema 6. Bronchitis Discussion with Dr Quintero hesitation, testing and treatment plan will add for observation and further evaluation Dragon Disclaimer Dragon Disclaimer This electronic medical record was generated, in whole or in part, using a voice recognition dictation system. Departure Departure: Referrals: DEBBIE TEAGUE MD (PCP) JEANINE RUCKER MD Jun 20, 2017 18:13 QING LEVIN MD Jun 20, 2017 23:34
[2017-06-20 18:17] LABS: BGAS PH 7.38 (7.35-7.46)
[2017-06-20 18:25] LABS: ALBUMIN 3.2 g/dL (3.4-5.0); ALBUMIN/GLOBULIN RATIO 0.9 (1.0-1.7); CALCIUM 8.6 mg/dL (8.5-10.1); CREATININE 0.9 mg/dL (0.7-1.3); GFR 84.7; POTASSIUM 4.9 mmol/L (3.5-5.1); TOTAL BILIRUBIN 0.4 mg/dL (0.2-1.0); TOTAL PROTEIN 6.6 g/dL (6.4-8.2)
[2017-06-20] MEDS ORDERED: CONTRAST GIVEN MC PRN (18:45)
[2017-06-20] MEDS ORDERED: ENOXAPARIN ** NOTE DOSE ** SYRINGE SQ ONE (19:00)
[2017-06-20] MEDS ORDERED: IOHEXOL 300 MG/ML 75 ML VIAL. IV ONE (19:00)
[2017-06-20] MEDS ORDERED: AZITHROMYCIN 250 MG TABLET. PO ONE ×2 (19:00→20:00)
[2017-06-20] MEDS ORDERED: MORPHINE SULFATE 4 MG/ML DISP.SYRIN. IV PRN (19:30)
[2017-06-20] MEDS ORDERED: ONDANSETRON PF 4 MG/2 ML VIAL. IV PRN (19:30)
[2017-06-20] MEDS: ENOXAPARIN ** NOTE DOSE ** SYRINGE SQ SCH (19:58)
[2017-06-20] MEDS ORDERED: IPRATRPIUM/ALBUTEROL 0.5/2.5MG 3 ML NEBU. NEB SCH (20:00)
--- NOTE | 2017-06-20 20:52 | RAD ---
CT pulmonary angiogram with intravenous contrast History: Chest pain, evaluate for pulmonary embolism Comparison: None. Technique: CT angiogram of the chest with attention to the pulmonary arteries was performed after the administration of intravenous contrast, 75 mL Omnipaque-300. Axial 2-D reconstructions were obtained. Coronal 3-D MIPS were obtained of the chest. Exposure: One or more of the following individualized dose reduction techniques were utilized for this examination: 1. Automated exposure control 2. Adjustment of the mA and/or kV according to patient size 3. Use of iterative reconstruction technique Findings: Pulmonary arteries are adequately opacified. There is no evidence of pulmonary embolism. Trachea and mainstem bronchi appear patent. Visualized thyroid appears symmetric. No acute airspace disease is identified. No pneumothorax or pleural effusion is seen. No mediastinal lymphadenopathy is seen. Thoracic aorta has normal caliber. No pericardial thickening is identified. Moderate bilateral gynecomastia is seen. Coronary artery calcifications are present. Mild emphysematous changes are seen. Scattered atelectasis is present. Impression: 1. No evidence of pulmonary embolism. 2. Emphysema. 3. Scattered atelectasis. Electronically signed by: Kang Canas MD (06/20/2017 8:48 PM) [facility]
[2017-06-20 20:56] VITALS: BP 148/64
[2017-06-20] MEDS: oxyCODONE ER 20 MG TAB.ER.12H PO SCH (21:44)
[2017-06-20] MEDS: DOXAZOSIN MESYLATE 4 MG TABLET PO SCH (21:45)
[2017-06-20] MEDS: MELATONIN 3 MG TABLET PO PRN (21:46)
[2017-06-20] MEDS: LACTOBACILLUS RHAMNOSUS GG 1 CAPSULE. PO SCH (21:47)
[2017-06-20] MEDS: ALPRAZolam 0.5 MG TABLET PO PRN (21:47)
[2017-06-20] MEDS: IPRATRPIUM/ALBUTEROL 0.5/2.5MG 3 ML NEBU. NEB SCH (22:23)
[2017-06-20 23:23] VITALS: BP 123/76
[2017-06-21] MEDS ORDERED: IPRATRPIUM/ALBUTEROL 0.5/2.5MG 3 ML NEBU. ONE (05:04)
[2017-06-21] MEDS: NALOXEGOL OXALATE 25 MG TABLET. PO SCH (05:17)
[2017-06-21 05:33] VITALS: BP 128/74
[2017-06-21 06:54] LABS: CALCIUM 8.3 mg/dL (8.5-10.1); CREATININE 0.9 mg/dL (0.7-1.3); GFR 84.7; POTASSIUM 4.8 mmol/L (3.5-5.1)
[2017-06-21 07:09] LABS: BASO % 0 % (0-3); EOS % 0 % (0-3); HEMATOCRIT 40.9 % (39.0-53.0); HEMOGLOBIN 13.8 g/dL (13.0-17.5); LYMPH # 0.6 x10^3/uL (1.0-4.8); LYMPH % 19 % (24-48); MEAN CORPUSCULAR HEMOGLOBIN 30 pg (25-35); MEAN CORPUSCULAR HGB CONC 34 g/dL (31-37); MEAN CORPUSCULAR VOLUME 89 fL (79-100); MONO # 0.2 x10^3/uL (0.0-1.1); MONO % 8 % (0-9); NEUT # 2.3 x10^3uL (1.8-7.7); NEUT % 74 % (31-73); PLATELET COUNT 95 x10^3/uL (140-400); RED CELL DISTRIBUTION WIDTH 14.5 % (11.5-14.5); WHITE BLOOD COUNT 3.1 x10^3/uL (4.0-11.0)
--- NOTE | 2017-06-21 07:09 | RAD ---
2 view chest 06/20/2017 Clinical indication: Shortness of breath. COPD. Comparison: Chest radiograph 06/07/2017. Findings: Cardiac and mediastinal silhouettes are unremarkable. There are patchy bibasilar opacities. No pleural effusion or pneumothorax. Impression: Patchy bibasilar opacities, likely atelectasis.
[2017-06-21] MEDS: PANTOPRAZOLE 40 MG TABLET. PO SCH (08:29)
[2017-06-21] MEDS: FLUTICASONE 50MCG/NASAL SPRAY 16GM BOTTLE. NS SCH (08:55)
[2017-06-21] MEDS: LISINOPRIL 20 MG TABLET PO SCH (08:55)
[2017-06-21] MEDS: oxyCODONE ER 20 MG TAB.ER.12H PO SCH ×2 (08:56→20:11)
[2017-06-21] MEDS: METOPROLOL SUCC 24HR ER 25 MG TAB.ER.24H. PO SCH (08:57)
[2017-06-21] MEDS: methylPREDNISolone SOD SUCC PF 125 MG/2 ML VIAL. IV SCH (08:57)
[2017-06-21] MEDS: DOCUSATE SODIUM 100 MG CAPSULE PO SCH (08:57)
[2017-06-21] MEDS: LACTOBACILLUS RHAMNOSUS GG 1 CAPSULE. PO SCH ×2 (08:57→20:11)
[2017-06-21] MEDS: AZITHROMYCIN 250 MG TABLET. PO SCH (08:57)
[2017-06-21] MEDS: ENOXAPARIN ** NOTE DOSE ** SYRINGE SQ SCH (08:58)
[2017-06-21] MEDS ORDERED: NON FORMULARY ITEM (Tiotropium Bromide (Spiriva) 1 CAP) IH SCH (09:00)
[2017-06-21] MEDS ORDERED: oxyCODONE IR 5 MG TABLET PO SCH (09:00)
--- NOTE | 2017-06-21 09:14 | RAD ---
Bilateral lower extremity venous Doppler 06/21/2017 Clinical indication: Lower extremity edema, shortness of air and elevated d-dimer. Comparison: None. Findings: Grayscale, color Doppler and spectral waveform analysis with cera graded compression augmentation were performed of the lower extremity deep venous system. Right common femoral, femoral and popliteal veins are patent with normal color Doppler imaging. Limited evaluation of the right lower extremity calf veins are unremarkable. Left common femoral, femoral and popliteal veins are patent with normal color Doppler imaging. Limited evaluation of the left lower extremity calf veins are unremarkable. Impression: No evidence of bilateral lower extremity DVT.
[2017-06-21] MEDS: IPRATRPIUM/ALBUTEROL 0.5/2.5MG 3 ML NEBU. NEB SCH ×3 (10:40→20:26)
[2017-06-21 11:34] VITALS: BP 116/65
[2017-06-21 14:48] VITALS: BP 144/66
[2017-06-21] MEDS: oxyCODONE IR 5 MG TABLET PO SCH (14:51)
[2017-06-21] MEDS ORDERED: AZIT250T6 PO (15:55)
[2017-06-21] MEDS ORDERED: ACETAMINOPHEN 325 MG TABLET PO PRN (18:30)
[2017-06-21 19:09] VITALS: BP 163/71
[2017-06-21] MEDS: ALPRAZolam 0.5 MG TABLET PO PRN (20:10)
[2017-06-21] MEDS: DOXAZOSIN MESYLATE 4 MG TABLET PO SCH (20:11)
[2017-06-21] MEDS: MELATONIN 3 MG TABLET PO PRN (20:12)
[2017-06-21] MEDS ORDERED: ENOXAPARIN ** NOTE DOSE ** SYRINGE SQ SCH (21:00)
--- NOTE | 2017-06-21 21:40 | HP ---
ADMIT DATE: 06/20/2017 HISTORY OF PRESENT ILLNESS: The patient is a 67-year-old male patient with a history of COPD on nighttime oxygen, was discharged recently because of hypoxia with improvement in his condition. He stated when he started exerting himself, his oxygen has dropped down to 70 and his primary care physician recommended to take 1 liter of oxygen during daytime and he started wearing oxygen, but his oxygen saturation continued to drop and his primary care physician recommended that he should come to the Emergency Room where he was found to have oxygen saturation of 88%. He was extensively investigated and admitted to continue treatment with steroids and antibiotics. His D-dimer was found to be elevated, so had a CT angio showed no evidence of DVT. No evidence of pulmonary emboli or emphysema and scattered atelectasis. The Doppler ultrasound of both lower extremities showed no evidence of bilateral lower extremity DVT. His chest x-ray showed that the cardiac and mediastinal silhouette are unremarkable. There are patchy bibasilar opacities. No pleural effusion or pneumothorax and the patient was admitted with [id number] hypoxic respiratory failure. He was found to have thrombocytopenia and the other finding are elevated D-dimer and was continued on Lovenox for DVT prevention. PAST MEDICAL HISTORY: Significant for chronic obstructive pulmonary disease, hypertension, osteoarthritis, abdominal aortic aneurysm repair. He is also known to have benign prostatic hypertrophy and chronic pain syndrome. PAST SURGICAL HISTORY: Significant for back surgery, right arthroscopic knee surgery, cholecystectomy, appendectomy, esophagogastroduodenoscopy and colonoscopy. ALLERGIES: HE IS ALLERGIC TO Keflex. MEDICATIONS: He is currently on following medications: Albuterol sulfate 1 puff every 4 hours as needed, albuterol sulfate 1.25 mg in 3 mL by nebulizer every 6 hours, alprazolam 1 mg at bedtime, azithromycin 250 mg tablet once a day, Colace 100 mg twice a day, Cardura 4 mg at bedtime, Flonase 2 sprays to each nostril once a day, hydralazine 50 mg 3 times a day, lisinopril 40 mg once a day, metoprolol succinate 25 mg extended release once a day, Movantik 25 mg daily, omeprazole 40 mg daily, oxycodone 60 mg twice a day, oxycodone 15 mg afternoon and ipratropium bromide for Spiriva HandiHaler 1 inhalation once a day. FAMILY HISTORY: He has 3 sisters younger and healthy. One brother due to alcoholism. Father because of sepsis and mother in her 40s because of liver cancer. SOCIAL HISTORY: He is and lives with his . He has 3 sons and 1 daughter and custody of two granddaughters. He is an ex-smoker, stopped smoking in 2005. He does not drink alcohol or use recreational drugs. 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 REVIEW OF SYSTEMS: As per the history of present illness. PHYSICAL EXAMINATION: GENERAL: When I examined him, on arrival, there was no pallor, jaundice, cyanosis, or thyromegaly. No jugular venous distention. No limb edema. VITAL SIGNS: His heart rate was 60, blood pressure 133/62, temperature was 98.2, respiratory rate was 20 and oxygen saturation was 88% on room air that improved to 95% on 2 liters of oxygen. HEAD, EYES, EARS, NOSE AND THROAT: Showed normocephalic, atraumatic. NECK: Supple. HEART: Showed normal first and second heart sounds. No gallop, rub or murmur. CHEST: Clear to auscultation. No crepitation or rhonchi. ABDOMEN: Distended, soft, nontender. No guarding or rigidity. No organomegaly. Hernial orifice intact. Bowel sounds normal. NEUROLOGIC: He was awake, alert, responding appropriately. Cranial nerves intact. EXTREMITIES: He moves extremities without difficulty, ambulates with a walker. LABORATORY DATA: On admission showed a white cell count of 4500, hemoglobin 15, hematocrit 45, MCV 89 and platelet count of 100,000 with normal manual differential. His prothrombin time was 10.6, INR of 1, aPTT of 25 and D-dimer was 2.75. His chemistry showed a serum sodium 142, potassium 4.8, chloride 102, bicarbonate 33, anion gap of 7, BUN 13, creatinine 0.9. Estimated GFR was 85 mL per minute. His glucose was 111. Calcium was 8.6. Total bilirubin, AST, ALT, alkaline phosphatase were normal. Total protein was 6.6, albumin 3.2. Lactic acid was 1.8. His blood gases showed a pH of 7.38, pCO2 of 54, pO2 of 62 and oxygen saturation was 90% on FIO2 of 28%. His chest x-ray showed patchy bibasilar opacities, likely atelectasis. CT angio of the chest showed no evidence of pulmonary embolism, emphysema and scattered atelectasis. His venous Doppler ultrasound of both lower extremities showed no evidence bilateral lower extremity DVT. ASSESSMENT AND PLAN: In summary, this is a 67-year-old male patient who was again admitted with [id number] hypoxic respiratory failure, has thrombocytopenia, elevated D-dimer with negative bilateral venous Doppler ultrasound and CT angio. CT scan showed he has marked emphysema and was continued on Zithromax, steroids and bronchodilators. JOHANNA SLATER MD DR: UYEN/catherine JOB#: [id number] / [id number]
[2017-06-21 22:18] VITALS: BP 104/59
[2017-06-22] MEDS: IPRATRPIUM/ALBUTEROL 0.5/2.5MG 3 ML NEBU. NEB SCH ×3 (05:21→16:00)
[2017-06-22] MEDS: NALOXEGOL OXALATE 25 MG TABLET. PO SCH (05:37)
[2017-06-22 05:43] VITALS: BP 116/57
[2017-06-22 06:48] LABS: HEMATOCRIT 40.1 % (39.0-53.0); HEMOGLOBIN 13.4 g/dL (13.0-17.5); RED BLOOD COUNT 4.5 x10^6/uL (4.30-5.70); RED CELL DISTRIBUTION WIDTH 14.6 % (11.5-14.5); WHITE BLOOD COUNT 4.7 x10^3/uL (4.0-11.0)
[2017-06-22 06:51] LABS: ALBUMIN 2.7 g/dL (3.4-5.0); ALBUMIN/GLOBULIN RATIO 0.8 (1.0-1.7); CALCIUM 8.2 mg/dL (8.5-10.1); CREATININE 0.8 mg/dL (0.7-1.3); POTASSIUM 4.5 mmol/L (3.5-5.1); TOTAL BILIRUBIN 0.2 mg/dL (0.2-1.0); TOTAL PROTEIN 6.1 g/dL (6.4-8.2)
[2017-06-22] MEDS: FLUTICASONE 50MCG/NASAL SPRAY 16GM BOTTLE. NS SCH (08:39)
[2017-06-22] MEDS: methylPREDNISolone SOD SUCC PF 125 MG/2 ML VIAL. IV SCH (08:39)
[2017-06-22] MEDS: LACTOBACILLUS RHAMNOSUS GG 1 CAPSULE. PO SCH (08:40)
[2017-06-22] MEDS: DOCUSATE SODIUM 100 MG CAPSULE PO SCH (08:40)
[2017-06-22] MEDS: PANTOPRAZOLE 40 MG TABLET. PO SCH (08:41)
[2017-06-22] MEDS: oxyCODONE ER 20 MG TAB.ER.12H PO SCH (08:41)
[2017-06-22] MEDS: AZITHROMYCIN 250 MG TABLET. PO SCH (08:42)
[2017-06-22] MEDS: METOPROLOL SUCC 24HR ER 25 MG TAB.ER.24H. PO SCH (08:44)
[2017-06-22 08:48] VITALS: BP 126/59
[2017-06-22] MEDS ORDERED: predniSONE 10 MG TABLET PO SCH (09:00)
[2017-06-22] MEDS ORDERED: ENOXAPARIN 40 MG/0.4 ML DISP.SYRIN. SQ SCH (09:00)
[2017-06-22] MEDS: LISINOPRIL 20 MG TABLET PO SCH (10:27)
[2017-06-22 10:45] VITALS: BP 131/74
[2017-06-22 14:03] VITALS: BP 129/64
[2017-06-22 14:04] VITALS: BP 129/64
[2017-06-22] MEDS: oxyCODONE IR 5 MG TABLET PO SCH (14:04)
--- NOTE | 2017-06-22 16:12 | PN ---
DATE: 06/21/2017 SUBJECTIVE: The patient is sitting comfortably, propped up in bed, in no apparent respiratory distress. He denied any chest pain or shortness of breath. OBJECTIVE: GENERAL: When I saw him this afternoon, he looked well and was clearly in no apparent respiratory distress, pale, but no jaundice, cyanosis, or thyromegaly. No jugular venous distension. No limb edema. VITAL SIGNS: His heart rate was 77, blood pressure 144/66, temperature was 98.3, respiratory rate 20, and oxygen saturation was 93% on 2 liters of oxygen. HEAD, EYES, EARS, NOSE AND THROAT: Showed normocephalic, atraumatic. NECK: Supple. HEART: Showed normal first and second sounds. No gallop, rub or murmur. CHEST: Clear to auscultation. No crepitation or rhonchi. ABDOMEN: Distended, soft, nontender. No guarding or rigidity. No organomegaly. Hernial orifice intact. Bowel sounds normal. NEUROLOGIC: He was awake, alert, responding appropriately. Cranial nerves intact. EXTREMITIES: He moves extremities without difficulty. LABORATORY DATA: His lab work this morning showed white cell count of 3100, hemoglobin 13.8, hematocrit 40.9, MCV 89 and platelet count of 95,000. Chemistry showed serum sodium 143, potassium 4.8, chloride 105, bicarbonate 34, anion gap of 4, BUN 18, creatinine 0.9, estimated GFR was 84 mL per minute. His glucose was 146, calcium was 8.3. Two sets of cardiac enzymes are unremarkable. PLAN: My plan is to continue with his current medication. Continue with DVT prophylaxis, pain management, and we will start him on steroids and evaluate him again tomorrow. ASSESSMENT: Acute on chronic hypoxic respiratory failure, hypertension, osteoarthritis, benign prostatic hypertrophy and chronic pain syndrome. JOHANNA SLATER MD DR: UYEN/catherine JOB#: [id number] / [id number]
--- NOTE | 2017-06-22 23:23 | DS ---
DATE OF DISCHARGE: 06/22/2017 HOSPITAL COURSE: The patient is a 67-year-old male patient, who was discharged only recently. As he started exerting himself and his oxygen has dropped down to 70, his primary care physician recommended to take 1 liter of oxygen during the daytime and he started wearing his oxygen, but his oxygen saturation continued to drop and his primary care physician recommended that he should come to the Emergency Room for further evaluation. He was found to have an oxygen saturation of 88%. He was extensively investigated and admitted to continue treatment with steroids and antibiotic. His D-dimer was found to be elevated, had a CT angio, showed no evidence of pulmonary emboli and he has bilateral lower extremity venous Doppler ultrasound showed no evidence of DVT. His chest x-ray showed that the cardiac and mediastinal silhouette are unremarkable. We did check his oxygen again on exertion and he requires 4 liters oxygen to maintain his oxygen saturation above 90 and therefore, a decision was made to discharge him home with the instruction to use 3-4 liters of oxygen while exerting himself and to go down to 2 liters when he is sitting or sleeping and try to maintain his oxygen saturation at 89-92%. PHYSICAL EXAMINATION: GENERAL: When I saw him this afternoon, he looked well and was clearly in no apparent respiratory distress, pale, but no jaundice, cyanosis, or thyromegaly. No jugular venous distension. No limb edema. VITAL SIGNS: His heart rate was 62, blood pressure was 129/64, temperature was 97.5, respiratory rate was 20, and oxygen saturation was 94% on 2 liters oxygen, lying in bed. He required 4 liters of oxygen while walking with the respiratory therapist. HEAD, EYES, EARS, NOSE AND THROAT: Showed normocephalic, atraumatic. NECK: Supple. HEART: Showed normal first and second heart sounds with no gallop, rub or murmur. CHEST: Clear to auscultation. No crepitation or rhonchi. ABDOMEN: Distended, soft, nontender. NEUROLOGICAL: He is awake, alert, responding appropriately. Cranial nerves intact. He moves extremities without difficulty. His intake over the last 24 hours was 1500. LABORATORY DATA: Her lab work this morning showed a white cell count 4700, hemoglobin 13, hematocrit 40, MCV 89, platelet count of 96,000. His chemistry showed a serum sodium of 41, potassium 4.5, chloride 103, bicarbonate 36, anion gap of 2, BUN 20, creatinine 0.8, estimated GFR was 97 mL per minute. Her BUN was 25, creatinine 92, MCV 82, and his calcium was 8.2. Total bilirubin, AST, ALT, alkaline phosphatase were normal. His total protein was 6.1, albumin 2.7. DISCHARGE MEDICATIONS: He will be discharged home to continue on all his current medication that include albuterol sulfate by inhaler and by nebulizer every 4 hours, alprazolam 1 mg daily for anxiety and agitation, azithromycin 250 mg daily, docusate sodium, Colace 100 mg once a day, Cardura 4 mg at bedtime, Flonase 2 sprays each nostril daily, hydralazine 50 mg 3 times a day, lisinopril 40 mg daily, metoprolol succinate 25 mg daily, Movantik 25 mg daily for constipation, omeprazole 40 mg daily, oxycodone for OxyContin 60 mg twice a day and oxycodone 15 mg in afternoon, tiotropium bromide for Spiriva HandiHaler 1 inhalation once a day. FINAL DISCHARGE DIAGNOSES: [id number] hypoxic respiratory failure, chronic obstructive pulmonary disease, morbid obesity, chronic back pain, hypertension, thrombocytopenia. JOHANNA SLATER MD DR: UYEN/catherine JOB#: [id number] / [id number]
== END 2017-06-22 17:45 | disposition home or self-care (01) | DRG 189 ==
LOC: ER 16:33 → 1 SOUTH 19:00
PROVIDERS: ADMIT Internal Medicine; ATTEND Internal Medicine
DX: J96.21 Acute and chronic respiratory failure with hypoxia (principal); E46 Unspecified protein-calorie malnutrition; D69.6 Thrombocytopenia, unspecified; E66.01 Morbid (severe) obesity due to excess calories; Z99.81 Dependence on supplemental oxygen; Z68.1 Body mass index [BMI] 19.9 or less, adult; J44.9 Chronic obstructive pulmonary disease, unspecified; G89.4 Chronic pain syndrome; I10 Essential (primary) hypertension; M19.90 Unspecified osteoarthritis, unspecified site; N40.0 Benign prostatic hyperplasia without lower urinary tract symptoms; Z80.0 Family history of malignant neoplasm of digestive organs; Z86.79 Personal history of other diseases of the circulatory system; Z87.891 Personal history of nicotine dependence; Z90.49 Acquired absence of other specified parts of digestive tract; Z88.1 Allergy status to other antibiotic agents
CPT/HCPCS: 36415; 71046; 71275; 80048; 80053; 82803; 83605; 83880; 84484; 85025; 85027; 85379; 85610; 85730; 87040; 87205; 93005; 93970; 94640; 94760; 96374; G0238; J0456; J1650; J2405; J2930; J7620; Q9967; 99285-25

== ENCOUNTER 2017-09-05 11:27 | Emergency (ER) | payer MEDICARE ==
[~2017-09-05] VITALS: Ht 177.8 cm; Wt 99.8 kg
[~2017-09-05 11:27] MED LIST changes: +AZIT250T6 PO
[2017-09-05] MEDS ORDERED: IV NORMAL SALINE 1,000ML 1,000 ML IV SCH (11:59)
[2017-09-05] MEDS ORDERED: ONDANSETRON PF 4 MG/2 ML VIAL. IV ONE (12:00)
--- NOTE | 2017-09-05 12:06 | PHYS DOC ---
Past History Past Medical History: COPD, Hypertension Past Surgical History: Cholecystectomy Smoking: Non-smoker Alcohol Use: None Drug Use: None Adult General Chief Complaint Chief Complaint: PELVIC PAIN [facility] HPI Patient is a 67 year old male who presents with complaint of right-sided pelvic pain and right thigh pain. Patient states his symptoms have been worsening over the past day. Patient states that the pain is burning and does not significant change with movement. Patient states that he has had history of abdominal aortic pathology requiring laparotomy and what is described as possible aortic graft repair of the abdominal aorta. Patient states that this procedure was completed in 1998 at [facility]. The patient states that he had similar symptoms a little over a week ago and went to his primary care physician or they diagnosed him as a possible sciatica. Patient states that he has had previous history of sciatic nerve pain and states that while similar, his pain was not in the same location as it is today. Patient rates his pain as 6 out of 10 currently. Review of Systems Review of Systems Constitutional: Denies fever or chills [] Eyes: Denies change in visual acuity, redness, or eye pain [] HENT: Denies nasal congestion or sore throat [] Respiratory: Denies cough or shortness of breath [] Cardiovascular: No additional information not addressed in HPI [] GI: Denies abdominal pain, nausea, vomiting, bloody stools or diarrhea [] : Denies dysuria or hematuria [] Musculoskeletal: Denies back pain or joint pain [] Integument: Denies rash or skin lesions [] Neurologic: Denies headache, focal weakness or sensory changes [] Endocrine: Denies polyuria or polydipsia [] All other systems were reviewed and found to be within normal limits, except as documented in this note. Allergies Allergies Allergies Coded Allergies Type Severity Reaction Last Updated Verified cephalexin Allergy Severe severe rash, itching 06/09/17 Yes Physical Exam Physical Exam Constitutional: Well developed, well nourished, no acute distress, non-toxic appearance. [] HENT: Normocephalic, atraumatic, bilateral external ears normal, oropharynx moist, no oral exudates, nose normal. [] Eyes: PERRLA, EOMI, conjunctiva normal, no discharge. [] Neck: Normal range of motion, no tenderness, supple, no stridor. [] Cardiovascular:Heart rate regular rhythm, no murmur [] Lungs & Thorax: Bilateral breath sounds clear to auscultation [] Abdomen: Bowel sounds normal, soft, no tenderness, no masses, no pulsatile masses. [] Skin: Warm, dry, no erythema, no rash. [] Back: No tenderness, no CVA tenderness. [] Extremities: Right femoral pulses 2+, mild tenderness to palpation along anterior thigh, right dorsalis pedis and posterior tibialis pulses 2+, no cyanosis, no clubbing, ROM intact, no edema. [] Neurologic: Alert and oriented X 3, normal motor function, normal sensory function, no focal deficits noted. [] Current Patient Data Vital Signs Vital Signs Date Time Temp Pulse Resp B/P (MAP) Pulse Ox O2 Delivery O2 Flow Rate FiO2 09/05/17 11:39 98.6 53 22 95 Room Air Lab Results Laboratory Tests Test 09/05/17 12:05 09/05/17 12:55 White Blood Count 6.5 x10^3/uL Red Blood Count 5.01 x10^6/uL Hemoglobin 15.1 g/dL Hematocrit 44.8 % Mean Corpuscular Volume 90 fL Mean Corpuscular Hemoglobin 30 pg Mean Corpuscular Hemoglobin Concent 34 g/dL Red Cell Distribution Width 13.9 % Platelet Count 132 x10^3/uL Neutrophils (%) (Auto) 80 % Lymphocytes (%) (Auto) 12 % Monocytes (%) (Auto) 5 % Eosinophils (%) (Auto) 2 % Basophils (%) (Auto) 1 % Neutrophils # (Auto) 5.2 x10^3uL Lymphocytes # (Auto) 0.8 x10^3/uL Monocytes # (Auto) 0.4 x10^3/uL Eosinophils # (Auto) 0.1 x10^3/uL Basophils # (Auto) 0.0 x10^3/uL Prothrombin Time 11.0 SEC Prothromb Time International Ratio 1.1 Activated Partial Thromboplast Time 23 SEC Sodium Level 141 mmol/L Potassium Level 3.8 mmol/L Chloride Level 102 mmol/L Carbon Dioxide Level 31 mmol/L Anion Gap 8 Blood Urea Nitrogen 15 mg/dL Creatinine 0.8 mg/dL Estimated GFR (Cockcroft-Gault) 97.0 BUN/Creatinine Ratio 19 Glucose Level 110 mg/dL Calcium Level 8.9 mg/dL Total Bilirubin 0.6 mg/dL Aspartate Amino Transf (AST/SGOT) 19 U/L Alanine Aminotransferase (ALT/SGPT) 26 U/L Alkaline Phosphatase 71 U/L Total Protein 7.1 g/dL Albumin 3.4 g/dL Albumin/Globulin Ratio 0.9 Lipase 93 U/L Urine Collection Type Unknown Urine Color Yellow Urine Clarity Cloudy Urine pH 5.5 Urine Specific [place] <=1.005 Urine Protein 30 mg/dl Urine Glucose (UA) Neg mg/dL Urine Ketones (Stick) Neg mg/dL Urine Blood Neg Urine Nitrite Pos Urine Bilirubin Neg Urine Urobilinogen Dipstick 1 mg/dL Urine Leukocyte Esterase Neg Urine RBC 1-2 /HPF Urine WBC 5-10 /HPF Urine Squamous Epithelial Cells Occ /LPF Urine Bacteria Mod /HPF Current Medications Medications (Trade) Dose Ordered Sig/Dagmar Route PRN Reason Start Time Stop Time Status Last Admin Dose Admin Fentanyl Citrate (Fentanyl 2ml Vial) 50 mcg PRN Q15MIN PRN IV PAIN GREATER THAN 3/10 09/05/17 12:00 09/06/17 11:59 09/05/17 12:14 Sodium Chloride 1,000 ml @ 1,000 mls/hr Q1H IV 09/05/17 11:59 09/05/17 12:58 DC 09/05/17 12:32 Ondansetron HCl (Zofran) 4 mg 1X ONCE IV 09/05/17 12:00 09/05/17 12:09 DC 09/05/17 12:12 Iohexol (Omnipaque 300 Mg/ml) 100 ml 1X ONCE IV 09/05/17 12:15 09/05/17 12:16 DC 09/05/17 12:22 Ondansetron HCl (Zofran) 4 mg STK-MED ONCE .ROUTE 09/05/17 12:08 09/05/17 12:09 DC Fentanyl Citrate (Fentanyl 2ml Vial) 100 mcg STK-MED ONCE .ROUTE 09/05/17 12:09 09/05/17 12:10 DC EKG EKG Not performed[] Radiology/Procedures Radiology/Procedures [address] [address] IMAGING REPORT Signed PATIENT: SRI ABAD ACCOUNT: [id number] : 1950 LOCATION: ER AGE: 67 SEX: M EXAM STATUS: REG ER ORD. PHYSICIAN: RADHA DUMAS MD REASON: right-sided pelvic pain, previous aortic graft procedure in 1998 PROCEDURE: CT ANGIOGRAPHY ABD AND PELVIS PQRS Compliance Statement: One or more of the following individualized dose reduction techniques were utilized for this examination: 1. Automated exposure control 2. Adjustment of the mA and/or kV according to patient size 3. Use of iterative reconstruction technique CT ANGIOGRAPHY ABD AND PELVIS Clinical Indication: Right groin pain for one week worse in the last day. Comparison: CT abdomen and pelvis without contrast, February 08, 2017. TECHNIQUE: Helical CT imaging of the abdomen and pelvis is performed after 90 cc of Omnipaque 300 IV contrast using angiogram protocol. 3-D volume rendering reconstructions of the abdominal aorta. Findings: The visualized descending thoracic aorta is normal in caliber. There is no dissection. 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 Segment that is narrowed measures about 13 mm. At the scattered calcification and minimal narrowing at the origin of the SMA. Single right and left renal arteries are patent. There is aortobifemoral bypass graft. The [place] distal abdominal aorta and common and external iliac arteries are occluded. The graft is patent. The superficial femoral and profunda arteries are patent. Minimal atelectasis or scarring in the lung bases. Cardiac size normal. Cholecystectomy. Liver, spleen, pancreas, and adrenal glands are normal. No hydronephrosis. Stomach unremarkable. No dilated small bowel. Fat-containing umbilical hernia. No colon wall thickening. No abdominal adenopathy or free fluid. Urinary bladder is normal. Prostate size normal. No pelvic free fluid. No inguinal hernia. Degenerative spondylosis of L4/L5. IMPRESSION: 1. No acute abdominal or pelvic abnormality. 2. Patent aortobifemoral bypass graft. 3. 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 Electronically signed by: Trey Ram MD (09/05/2017 1:10 PM) [id number] DICTATED AND SIGNED BY: TREY RAM MD DATE: 09/05/17 1256 CC: DEBBIE TEAGUE MD; RADHA DUMAS MD ~ [] Course & Med Decision Making Course & Med Decision Making Pertinent Labs and Imaging studies reviewed. (See chart for details) The patient was given IV fluids, fentanyl, and Zofran. CT shows a normal functioning aorto femoral graft with no evidence of further dissection or aneurysmal change. The patient's symptoms appear to be radicular in nature, affecting the right femoral nerve. The patient however is also found to have evidence of urinary tract infection. The patient will be started on Cipro for treatment of urinary tract infection. I will also treat the patient with [place] and Medrol Dosepak for radicular pain. Recommended follow-up in the next 3-5 days a primary doctor for reevaluation and return emergency department for any worsening symptoms. Dragon Disclaimer Dragon Disclaimer This electronic medical record was generated, in whole or in part, using a voice recognition dictation system. Departure Departure: Impression: Primary Impression: Pelvic pain Additional Impression: Urinary tract infection Disposition: 01 HOME, SELF-CARE Condition: IMPROVED Referrals: DEBBIE TEAGUE MD (PCP) Patient Instructions: Pelvic Pain, Male, Radicular Pain, Urinary Tract Infection Additional Instructions: Follow-up with your primary doctor in 3-5 days for reevaluation. Return to the emergency department for any worsening symptoms. Scripts Ciprofloxacin Hcl (CIPRO) 500 Mg Tablet 1 TAB PO BID, #14 TAB Prov: RADHA DUMAS MD 09/05/17 Hydrocodone Bit/Acetaminophen (NORCO 5-325 TABLET) 1 Each Tablet 1-2 TAB PO Q4-6HRS Y for PAIN, #20 TAB Prov: RADHA DUMAS MD 09/05/17 Methylprednisolone (MEDROL) 4 Mg Tab.ds.pk 1 PKG PO UD, #1 PKG Prov: RADHA DUMAS MD 09/05/17 Problem Qualifiers Additional Impression: Urinary tract infection Urinary tract infection type: site unspecified Hematuria presence: without hematuria Qualified Codes: N39.0 - Urinary tract infection, site not specified RADHA DUMAS MD Sep 05, 2017 12:06
[2017-09-05] MEDS ORDERED: ONDANSETRON PF 4 MG/2 ML VIAL. ONE (12:08)
[2017-09-05] MEDS ORDERED: IOHEXOL 300 MG/ML 50 ML VIAL. IV ONE (12:15)
[2017-09-05 12:21] LABS: BASO % 1 % (0-3); EOS # 0.1 x10^3/uL (0.0-0.7); EOS % 2 % (0-3); HEMATOCRIT 44.8 % (39.0-53.0); HEMOGLOBIN 15.1 g/dL (13.0-17.5); LYMPH # 0.8 x10^3/uL (1.0-4.8); LYMPH % 12 % (24-48); MEAN CORPUSCULAR HEMOGLOBIN 30 pg (25-35); MEAN CORPUSCULAR HGB CONC 34 g/dL (31-37); MEAN CORPUSCULAR VOLUME 90 fL (79-100); MONO # 0.4 x10^3/uL (0.0-1.1); MONO % 5 % (0-9); NEUT # 5.2 x10^3uL (1.8-7.7); NEUT % 80 % (31-73); PLATELET COUNT 132 x10^3/uL (140-400); RED BLOOD COUNT 5.01 x10^6/uL (4.30-5.70); RED CELL DISTRIBUTION WIDTH 13.9 % (11.5-14.5); WHITE BLOOD COUNT 6.5 x10^3/uL (4.0-11.0)
[2017-09-05 12:32] LABS: ALBUMIN 3.4 g/dL (3.4-5.0); ALBUMIN/GLOBULIN RATIO 0.9 (1.0-1.7); CALCIUM 8.9 mg/dL (8.5-10.1); CREATININE 0.8 mg/dL (0.7-1.3); POTASSIUM 3.8 mmol/L (3.5-5.1); TOTAL BILIRUBIN 0.6 mg/dL (0.2-1.0); TOTAL PROTEIN 7.1 g/dL (6.4-8.2)
--- NOTE | 2017-09-05 13:13 | RAD ---
PQRS Compliance Statement: One or more of the following individualized dose reduction techniques were utilized for this examination: 1. Automated exposure control 2. Adjustment of the mA and/or kV according to patient size 3. Use of iterative reconstruction technique CT ANGIOGRAPHY ABD AND PELVIS Clinical Indication: Right groin pain for one week worse in the last day. Comparison: CT abdomen and pelvis without contrast, February 08, 2017. TECHNIQUE: Helical CT imaging of the abdomen and pelvis is performed after 90 cc of Omnipaque 300 IV contrast using angiogram protocol. 3-D volume rendering reconstructions of the abdominal aorta. Findings: The visualized descending thoracic aorta is normal in caliber. There is no dissection. 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 Segment that is narrowed measures about 13 mm. At the scattered calcification and minimal narrowing at the origin of the SMA. Single right and left renal arteries are patent. There is aortobifemoral bypass graft. The [place] distal abdominal aorta and common and external iliac arteries are occluded. The graft is patent. The superficial femoral and profunda arteries are patent. Minimal atelectasis or scarring in the lung bases. Cardiac size normal. Cholecystectomy. Liver, spleen, pancreas, and adrenal glands are normal. No hydronephrosis. Stomach unremarkable. No dilated small bowel. Fat-containing umbilical hernia. No colon wall thickening. No abdominal adenopathy or free fluid. Urinary bladder is normal. Prostate size normal. No pelvic free fluid. No inguinal hernia. Degenerative spondylosis of L4/L5. IMPRESSION: 1. No acute abdominal or pelvic abnormality. 2. Patent aortobifemoral bypass graft. 3. 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 Electronically signed by: Trey Ram MD (09/05/2017 1:10 PM) [id number]
[2017-09-05 13:16] LABS: BILIRUBIN,URINE NEG (NEG); CLARITY,URINE CLOUDY; COLOR,URINE YELLOW; GLUCOSE,URINE NEG (NEG); NITRITE,URINE POS (NEG); UROBILINOGEN,URINE 1 mg/dL (0.2 mg/dL)
[2017-09-05 13:17] LABS: BACTERIA,URINE MOD /HPF (0-FEW); SQUAMOUS EPITHELIAL CELL,UR OCC /LPF
[2017-09-05] MEDS ORDERED: HYDR-971 PO (13:31)
[2017-09-05] MEDS ORDERED: CIPR500T94 PO (13:31)
[2017-09-05] MEDS ORDERED: METH4TAB2 PO (13:31)
[2017-09-05 13:46] VITALS: BP 158/88
== END 2017-09-05 14:09 | disposition home or self-care (01) ==
LOC: ER 11:27
DX: R10.2 Pelvic and perineal pain (principal); N39.0 Urinary tract infection, site not specified; M79.651 Pain in right thigh; I10 Essential (primary) hypertension; J44.9 Chronic obstructive pulmonary disease, unspecified; Z88.1 Allergy status to other antibiotic agents; Z90.49 Acquired absence of other specified parts of digestive tract
CPT/HCPCS: 36415; 74174; 80053; 81001; 83690; 85025; 85610; 85730; 87086; 96361; 96374; 96375; 99285; J2405; J3010; Q9967; J7030

== ENCOUNTER 2017-11-19 10:58 | Emergency (ER) | payer MEDICARE ==
[~2017-11-19] VITALS: Ht 177.8 cm; Wt 99.3 kg
[~2017-11-19 10:58] MED LIST changes: +CIPR500T94 PO; +HYDR-971 PO; +METH4TAB2 PO
--- NOTE | 2017-11-19 11:19 | PHYS DOC ---
Past History Past Medical History: COPD, Hypertension Past Surgical History: Cholecystectomy Smoking: Non-smoker Alcohol Use: None Drug Use: None Adult General Chief Complaint Chief Complaint: ABDOMINAL PAIN HPI HPI Patient is a 67-year-old male who presents for evaluation of left lower quadrant and suprapubic abdominal discomfort which began earlier today. History of recent UTI and states this feels somewhat similar. He also mentions that he takes chronic opiates and is frequently constipated. He is status post appendectomy and cholecystectomy. He also has history of COPD, hypertension, and previous abdominal aortic aneurysm repair. He is alert and oriented 4, calm , and appears to be in no distress at this time. Review of Systems Review of Systems Constitutional: Denies fever or chills [] Eyes: Denies change in visual acuity, redness, or eye pain [] HENT: Denies nasal congestion or sore throat [] Respiratory: Denies cough or shortness of breath [] Cardiovascular: No additional information not addressed in HPI [] GI: nausea, vomiting, bloody stools or diarrhea [] +abd pain : Denies dysuria or hematuria [] Musculoskeletal: Denies back pain or joint pain [] Integument: Denies rash or skin lesions [] Neurologic: Denies headache, focal weakness or sensory changes [] Endocrine: Denies polyuria or polydipsia [] All other systems were reviewed and found to be within normal limits, except as documented in this note. Current Medications Current Medications Current Medications Medications (Trade) Dose Ordered Sig/Dagmar Start Time Stop Time Status Last Admin Dose Admin Sodium Chloride 1,000 ml @ 1,000 mls/hr 1X ONCE 11/19/17 11:15 11/19/17 12:14 UNV Allergies Allergies Allergies Coded Allergies Type Severity Reaction Last Updated Verified cephalexin Allergy Severe severe rash, itching 06/09/17 Yes Physical Exam Physical Exam Constitutional: Well developed, well nourished, no acute distress, non-toxic appearance. [] HENT: Normocephalic, atraumatic, bilateral external ears normal, oropharynx moist, no oral exudates, nose normal. [] Eyes: PERRLA, EOMI, conjunctiva normal, no discharge. [] Neck: Normal range of motion, no tenderness, supple, no stridor. [] Cardiovascular:Heart rate regular rhythm, no murmur [] Lungs & Thorax: Bilateral breath sounds clear to auscultation [] Abdomen: Bowel sounds normal, soft, no masses, no pulsatile masses. [] ttp in llq and suprapubic regions, no guarding, no rigidity, mild distention diffusely and fullness more notable on the left Skin: Warm, dry, no erythema, no rash. [] Back: No tenderness, no CVA tenderness. [] Extremities: No tenderness, no cyanosis, no clubbing, ROM intact, no edema. [] Neurologic: Alert and oriented X 3, normal motor function, normal sensory function, no focal deficits noted. [] Psychologic: Affect normal, judgement normal, mood normal. [] EKG EKG [] Radiology/Procedures Radiology/Procedures [address] [address] IMAGING REPORT Signed PATIENT: SRI ABAD ACCOUNT: [id number] : 1950 LOCATION: ER AGE: 67 SEX: M EXAM STATUS: REG ER ORD. PHYSICIAN: JESSICA CORREA DO REASON: LLQ and suprapubic abd pain PROCEDURE: ACUTE ABDOMEN SERIES INDICATION: Left lower quadrant pain for a few days. Suprapubic pain. TECHNIQUE: Abdominal series with chest radiograph contains 4 images. Comparison chest radiograph is from June 20, 2017. FINDINGS: There is minimal atelectasis or scarring in the left lung base. The heart is not enlarged. The pulmonary vasculature is mildly cephalized. There is no free air. There is no dilated small bowel loop or air-fluid level. There is increased stool in the colon. There are clips in the gallbladder fossa. There are degenerative changes in the spine. IMPRESSION: 1. Increased stool in the colon, correlate with any concern for constipation. 2. No evidence of small bowel obstruction. 3. Mild vascular congestion suspected. Mild left basilar atelectasis or scarring. Electronically signed by: Tad Dsouza MD (11/19/2017 12:10 PM) [id number] DICTATED AND SIGNED BY: TAD DSOUZA MD DATE: 11/19/17 6421 CC: JESSICA CORREA DO; DEBBIE TEAGUE MD ~ [address] [address] IMAGING REPORT Signed PATIENT: SRI ABAD ACCOUNT: [id number] : 1950 LOCATION: ER AGE: 67 SEX: M EXAM STATUS: REG ER ORD. PHYSICIAN: JESSICA CORREA DO REASON: abd pain PROCEDURE: CT ABD PELV W/ IV CONTRST ONLY Indication: Constipation. Abdominal pain. Technique: Axial images and coronal and sagittal reformatted images are provided. 75 mL of intravenous Omnipaque 300 was administered without complication. Comparison is from September 05, 2017. One or more of the following individualized dose reduction techniques were utilized for this examination: 1. Automated exposure control 2. Adjustment of the mA and/or kV according to patient size 3. Use of iterative reconstruction technique Findings: The lung bases are clear. There is no pleural effusion. The heart is not enlarged. Liver is without discrete lesion. Gallbladder is absent. Spleen is not enlarged. Pancreas is partially fatty replaced. There is no adrenal mass. There is symmetric stranding of the perinephric fat, nonspecific. Kidneys are symmetrically perfused without evidence of urolithiasis. Aortic bypass graft is noted and patent, was better evaluated on the previous CT angiogram. Lack of oral contrast limits evaluation of bowel. There is no dilated small bowel loop or mural thickening. Fluid-filled normal caliber bowel loops are noted without any definite wall hyperemia. There is increased stool in the colon. There is no definite mural thickening in the colon. Portions of this patient's subcutaneous tissues bilaterally as well as the right paracolic gutter cannot be included in the [id number]. There are a few clips deep to the right rectus musculature with some fatty atrophy of the rectus musculature which is greater on the right and inferiorly. Fat-containing umbilical hernia is noted without incarceration, small. Bladder is unremarkable. Prostate calcifications are noted. There are degenerative changes in the spine. L4 and L5 appear fused, may be developmental. IMPRESSION: 1. Increased stool in the colon, correlate with findings of constipation. No evidence of a colitis. Negative for small bowel obstruction. Electronically signed by: Tad Dsouza MD (11/19/2017 3:28 PM) [id number] DICTATED AND SIGNED BY: TAD DSOUZA MD DATE: 11/19/17 5923 CC: JESSICA CORREA DO; DEBBIE TEAGUE MD ~ Course & Med Decision Making Course & Med Decision Making Pertinent Labs and Imaging studies reviewed. (See chart for details) @1240 - patient updated on lab and imaging results. The patient's x-ray suggests constipation which fits his physical exam. Workup fails to reveal any emergent pathology. Will give the patient medications for relief of constipation here in the emergency department and also to go home with. Patient does not want CT imaging at this point which was offered. Advised the patient to follow up with his PCP in the next 1-2 days. Also advised the patient to return to the emergency Department immediately for new or worsening symptoms. @1425 - While pt being discharged he has been complaining of worsening pain. He now is willing to obtain CT imaging. @1535 - a shunt updated on CT imaging which is unremarkable. He is stable for discharge at this time. VSS. Jossie Disclaimer Dragon Disclaimer This electronic medical record was generated, in whole or in part, using a voice recognition dictation system. Departure Departure: Impression: Primary Impression: Constipation Additional Impression: Abdominal pain Disposition: HOME, SELF-CARE Condition: STABLE Referrals: DEBBIE TEAGUE MD (PCP) Patient Instructions: Constipation, Adult Additional Instructions: Follow-up with your doctor in the next 1-2 days. Return to the ER for new or worsening symptoms. Take the prescribed medicine as directed, as needed for relief of constipation. Scripts Magnesium Citrate (MAGNESIUM CITRATE) 296 Ml Solution 296 ML PO ONCE, #296 ML Prov: JESSICA CORREA DO 11/19/17 Bisacodyl (BISACODYL) 5 Mg Tablet. 5 MG PO PRN DAILY PRN for CONSTIPATION, #20 TAB 0 Refills Prov: JESSICA CORREA DO 11/19/17 Docusate Sodium (COLACE) 100 Mg Capsule 1 CAP PO BID, #30 CAP Prov: JESSICA CORREA DO 11/19/17 Problem Qualifiers JESSICA CORREA DO Nov 19, 2017 11:19
[2017-11-19] MEDS ORDERED: IV NORMAL SALINE 1,000ML 1,000 ML IV ONE ×2 (11:30→12:30)
[2017-11-19 11:33] LABS: BASO % 1 % (0-3); EOS # 0.3 x10^3/uL (0.0-0.7); EOS % 3 % (0-3); HEMOGLOBIN 13.9 g/dL (13.0-17.5); LYMPH # 1.1 x10^3/uL (1.0-4.8); LYMPH % 15 % (24-48); MEAN CORPUSCULAR HEMOGLOBIN 30 pg (25-35); MEAN CORPUSCULAR HGB CONC 34 g/dL (31-37); MEAN CORPUSCULAR VOLUME 90 fL (79-100); MONO # 0.5 x10^3/uL (0.0-1.1); MONO % 6 % (0-9); NEUT # 5.7 x10^3uL (1.8-7.7); NEUT % 75 % (31-73); PLATELET COUNT 117 x10^3/uL (140-400); RED BLOOD COUNT 4.58 x10^6/uL (4.30-5.70); RED CELL DISTRIBUTION WIDTH 14.5 % (11.5-14.5); WHITE BLOOD COUNT 7.6 x10^3/uL (4.0-11.0)
[2017-11-19 11:37] LABS: BILIRUBIN,URINE NEG (NEG); CLARITY,URINE CLEAR; COLOR,URINE YELLOW; GLUCOSE,URINE NEG (NEG)
[2017-11-19 11:38] LABS: BACTERIA,URINE 0 /HPF (0-FEW); NITRITE,URINE NEG (NEG); RBC,URINE 0 /HPF (0-2); SQUAMOUS EPITHELIAL CELL,UR OCC /LPF; UROBILINOGEN,URINE 0.2 mg/dL (0.2 mg/dL); WBC,URINE RARE /HPF (0-4)
[2017-11-19 11:45] LABS: ALBUMIN 3.3 g/dL (3.4-5.0); ALBUMIN/GLOBULIN RATIO 0.9 (1.0-1.7); CALCIUM 8.7 mg/dL (8.5-10.1); CREATININE 0.9 mg/dL (0.7-1.3); GFR 84.7; POTASSIUM 5.3 mmol/L (3.5-5.1); TOTAL BILIRUBIN 0.7 mg/dL (0.2-1.0)
--- NOTE | 2017-11-19 12:14 | RAD ---
INDICATION: Left lower quadrant pain for a few days. Suprapubic pain. TECHNIQUE: Abdominal series with chest radiograph contains 4 images. Comparison chest radiograph is from June 20, 2017. FINDINGS: There is minimal atelectasis or scarring in the left lung base. The heart is not enlarged. The pulmonary vasculature is mildly cephalized. There is no free air. There is no dilated small bowel loop or air-fluid level. There is increased stool in the colon. There are clips in the gallbladder fossa. There are degenerative changes in the spine. IMPRESSION: 1. Increased stool in the colon, correlate with any concern for constipation. 2. No evidence of small bowel obstruction. 3. Mild vascular congestion suspected. Mild left basilar atelectasis or scarring. Electronically signed by: Tad Dsouza MD (11/19/2017 12:10 PM) [email or web address]
[2017-11-19] MEDS ORDERED: BISACODYL TAB 5 MG TABLET.DR. PO ONE (12:30)
[2017-11-19] MEDS ORDERED: MAGNESIUM CITRATE 296 ML SOLUTION. PO ONE (12:30)
[2017-11-19] MEDS ORDERED: DOCUSATE SODIUM 100 MG CAPSULE PO ONE (12:30)
[2017-11-19] MEDS ORDERED: MAGN296S9 PO (12:47)
[2017-11-19] MEDS ORDERED: DOCU-109 PO (12:47)
[2017-11-19] MEDS ORDERED: BISA5TAB4 PO (12:47)
[2017-11-19] MEDS ORDERED: IOHEXOL 300 MG/ML 75 ML VIAL. IV ONE (14:45)
[2017-11-19 15:30] VITALS: BP 136/86
--- NOTE | 2017-11-19 15:32 | RAD ---
Indication: Constipation. Abdominal pain. Technique: Axial images and coronal and sagittal reformatted images are provided. 75 mL of intravenous Omnipaque 300 was administered without complication. Comparison is from September 05, 2017. One or more of the following individualized dose reduction techniques were utilized for this examination: 1. Automated exposure control 2. Adjustment of the mA and/or kV according to patient size 3. Use of iterative reconstruction technique Findings: The lung bases are clear. There is no pleural effusion. The heart is not enlarged. Liver is without discrete lesion. Gallbladder is absent. Spleen is not enlarged. Pancreas is partially fatty replaced. There is no adrenal mass. There is symmetric stranding of the perinephric fat, nonspecific. Kidneys are symmetrically perfused without evidence of urolithiasis. Aortic bypass graft is noted and patent, was better evaluated on the previous CT angiogram. Lack of oral contrast limits evaluation of bowel. There is no dilated small bowel loop or mural thickening. Fluid-filled normal caliber bowel loops are noted without any definite wall hyperemia. There is increased stool in the colon. There is no definite mural thickening in the colon. Portions of this patient's subcutaneous tissues bilaterally as well as the right paracolic gutter cannot be included in the [id number]. There are a few clips deep to the right rectus musculature with some fatty atrophy of the rectus musculature which is greater on the right and inferiorly. Fat-containing umbilical hernia is noted without incarceration, small. Bladder is unremarkable. Prostate calcifications are noted. There are degenerative changes in the spine. L4 and L5 appear fused, may be developmental. IMPRESSION: 1. Increased stool in the colon, correlate with findings of constipation. No evidence of a colitis. Negative for small bowel obstruction. Electronically signed by: Tad Dsouza MD (11/19/2017 3:28 PM) [id number]
== END 2017-11-19 15:45 | disposition home or self-care (01) ==
LOC: ER 10:58
DX: K59.00 Constipation, unspecified (principal); J44.9 Chronic obstructive pulmonary disease, unspecified; I10 Essential (primary) hypertension; Z90.49 Acquired absence of other specified parts of digestive tract; Z88.1 Allergy status to other antibiotic agents
CPT/HCPCS: 36415; 74022; 74177; 80053; 81001; 83690; 85025; 99285; Q9967; J7030

== ENCOUNTER → 2018-05-16 | Outpatient (CLI) | payer MEDICARE ==
[~2018-05-16] MED LIST changes: +BISA5TAB4 PO; +HYDR-3165 PO; -HYDR-971 PO; +IOHEXOL 240 MG/ML 50ML VIAL. ONE; +IOHEXOL 300 MG/ML 75 ML VIAL. IV ONE; +MAGN296S9 PO
[2018-05-16] MEDS: IOHEXOL 300 MG/ML 75 ML VIAL. IV ONE (14:14)
--- NOTE | 2018-05-16 14:40 | RAD ---
CT ABD PELV W/ORAL IV CONTRAST Indication: luq pain for 2 days Exposure: One or more of the following individualized dose reduction techniques were utilized for this examination: 1. Automated exposure control 2. Adjustment of the mA and/or kV according to patient size 3. Use of iterative reconstruction technique. Comparison: November 19, 2017 Contrast: Intravenous contrast was given. No oral contrast per request. FINDINGS: Lower thorax: Lung bases are clear. Liver: Very small subcapsular lesion of the right hepatic dome is unchanged since prior study, measures about 14 mm. Spleen: Unremarkable Pancreas: Unremarkable Adrenals: No evidence of mass. Kidneys: No obvious mass. Urinary tracts: No hydronephrosis. Gallbladder: Surgically absent Lymph nodes: No significant enlargement Vessels: Aortic bypass is identified. Atherosclerotic calcifications are identified. GI tract: Mild stool in the colon. No bowel obstruction. No evidence of acute colitis. The appendix is not clearly seen. Reproductive organs:No evidence of mass. Urinary bladder: Unremarkable. Peritoneum: No evidence of pneumoperitoneum. No free fluid. Abdominal wall: Small fat-containing anterior hernia is identified. Spine: L4-L5 partial fusion again identified. Degenerative changes. Bones: No destructive process identified. External Soft Tissue: No acute findings. IMPRESSION: 1. Not much changed since the prior study. 2. Small subcapsular lesion of the right hepatic dome is stable. 3. No acute findings. Electronically signed by: Kang Ruiz MD (05/16/2018 2:36 PM) [id number]
== END | disposition home or self-care (01) ==
LOC: CT 12:41
PROVIDERS: ATTEND Family Medicine
DX: K76.89 Other specified diseases of liver (principal); M51.36 Other intervertebral disc degeneration, lumbar region; I70.0 Atherosclerosis of aorta
CPT/HCPCS: 74177; Q9966; Q9967

== ENCOUNTER → 2019-05-08 | Outpatient (CLI) | payer MEDICARE ==
[~2019-05-08] MED LIST changes: +ALBU2.5V8 INH; -ALBU8.5H8 INH; -IOHEXOL 240 MG/ML 50ML VIAL. ONE; -IOHEXOL 300 MG/ML 75 ML VIAL. IV ONE; +OMEP40CA45 PO; -OMEP40CA5 PO
--- NOTE | 2019-05-08 13:27 | RAD ---
EXAM: Abdominal aortic sonogram. HISTORY: Aortobiiliac endograft. TECHNIQUE: Sonographic imaging of the abdominal aorta was performed. COMPARISON: CT dated 05/16/2018. FINDINGS: The exam is extremely limited due to bowel gas. The mid and distal abdominal aorta are obscured and the proximal abdominal aorta is partially obscured. The proximal abdominal aorta appears to measure 1.7 cm in maximum dimension. IMPRESSION: Significantly limited exam due to bowel gas. The majority of the aorta is obscured. Electronically signed by: Erna Brothers MD (05/08/2019 1:24 PM) [place] [id number]
--- NOTE | 2019-05-08 16:22 | RAD ---
Chest CT without contrast Clinical indications: Chronic obstructive pulmonary disease. Follow-up of lung nodule. Comparison: CT study chest dated December 28, 2016. CT of the chest dated June 20, 2017. TECHNIQUE: Noncontrast helical CT scanning of the chest was performed. Without contrast, the sensitivity to detect organ pathology is decreased. PQRS compliance Statement One or more of the following individualized dose reduction techniques were utilized for this study: 1. Automated exposure control 2. Adjustment of the mA and/or kV according to patient size 3. Use of iterative reconstruction technique FINDINGS: No focal aneurysmal dilatation of the thoracic aorta is seen. There is calcified atheromatous disease of the coronary arteries. The heart size is normal and no pericardial effusion is seen. On series 2 and image 65, there is a nodule present within the lateral posterior aspect of the inferior segment lingula measuring 7 mm. This is unchanged. On image 60, there is a new lung nodule seen within the posterior aspect and inferior portion of the right upper lobe which measures 7 mm. No new lung consolidation or pleural effusion or pneumothorax seen. The proximal bronchial tree is patent. Mild centrilobular emphysema seen bilaterally with an upper lung zone predominance. A hemangioma of T8 vertebral body is again evident. No lytic process is seen. IMPRESSION: Stable nodule of the lingula measuring 7 mm. This is benign since it is stable over 2 years. There is a new lung nodule seen within the posterior inferior aspect of the right upper lobe which measures [address] follow-up in 6-12 months is recommended as per Fleischner guidelines. No new lung consolidation. Calcified atheromatous disease of the coronary arteries. Electronically signed by: Nicholas Tristan MD (05/08/2019 4:19 PM) [facility]
== END | disposition home or self-care (01) ==
LOC: CT 10:12
PROVIDERS: ATTEND Family Medicine
DX: J43.2 Centrilobular emphysema (principal); R91.8 Other nonspecific abnormal finding of lung field; I25.10 Atherosclerotic heart disease of native coronary artery without angina pectoris
CPT/HCPCS: 71250; 76770

== ENCOUNTER 2020-05-06 17:28 | Emergency (ER) | payer MEDICARE ==
[~2020-05-06] VITALS: Ht 177.8 cm; Wt 104.8 kg
[~2020-05-06 17:28] MED LIST changes: +MAGN296S68 PO; -MAGN296S9 PO; -NALO25TA PO; +NALO25TA4 PO; -OXYC30TA PO; +OXYC30TA3 PO
[2020-05-06] MEDS ORDERED: [UNRECOGNIZED DRUG - CODE] (18:00)
--- NOTE | 2020-05-06 18:08 | PHYS DOC ---
Past History Past Medical History: Anxiety, Hypertension, Other Additional Past Medical Histor: CHRONIC PAIN - BACK (ADITYA PARKER APRN) Past Surgical History: Other Additional Past Surgical Histo: BACK (ADITYA PARKER APRN) Smoking: Non-smoker Alcohol Use: None Drug Use: None (ADITYA PARKER APRN) General Pediatric Assessment History of Present Illness Patient is a [age] year old [sex] who presents with [] Historian was the []. (ADITYA PARKER APRN) Review of Systems Constitutional: Denies fever or chills [] Eyes: Denies change in visual acuity, redness, or eye pain [] HENT: Denies nasal congestion or sore throat [] Respiratory: Denies cough or shortness of breath [] Cardiovascular: No additional information not addressed in HPI [] GI: Denies abdominal pain, nausea, vomiting, bloody stools or diarrhea [] : Denies dysuria or hematuria [] Musculoskeletal: Denies back pain or joint pain [] Integument: Denies rash or skin lesions [] Neurologic: Denies headache, focal weakness or sensory changes [] Endocrine: Denies polyuria or polydipsia [] All other systems were reviewed and found to be within normal limits, except as documented in this note. (ADITYA PARKER APRN) Allergies Allergies Coded Allergies Type Severity Reaction Last Updated Verified cephalexin Allergy Severe severe rash, itching 06/09/17 Yes (ADITYA PARKER APRN) Physical Exam Constitutional: Well developed, well nourished, no acute distress, non-toxic appearance, positive interaction, playful. HENT: Normocephalic, atraumatic, bilateral external ears normal, oropharynx moist, no oral exudates, nose normal. Eyes: PERLL, EOMI, conjunctiva normal, no discharge. Neck: Normal range of motion, no tenderness, supple, no stridor. Cardiovascular: Normal heart rate, normal rhythm, no murmurs, no rubs, no gallops. Thorax and Lungs: Normal breath sounds, no respiratory distress, no wheezing, no chest tenderness, no retractions, no accessory muscle use. Abdomen: Bowel sounds normal, soft, no tenderness, no masses, no pulsatile masses. Skin: Warm, dry, no erythema, no rash. Back: No tenderness, no CVA tenderness. Extremeties: Intact distal pulses, no tenderness, no cyanosis, no clubbing, ROM intact, no edema. Musculoskeletal: Good ROM in all major joints, no tenderness to palpation or major deformities noted. Neurologic: Alert and oriented X 3, normal motor function, normal sensory function, no focal deficits noted. Psychologic: Affect normal, judgement normal, mood normal. (ADITYA PARKER APRN) Radiology/Procedures [] (ADITYA PARKER APRN) Current Patient Data Active Scripts Medications Dose Route/Sig Max Daily Dose Days Date Category Dose Instructions Oxycodon-Acetaminophen 2.5-300 (Oxycodone HCl/Acetaminophen) 1 Each Tablet 1 PRN 05/06/20 Reported Magnesium Citrate 296 Ml Solution 296 Ml PO ONCE 11/19/17 Rx Bisacodyl 5 Mg Tablet.dr 5 Mg PO PRN DAILY PRN 11/19/17 Rx Colace (Docusate Sodium) 100 Mg Capsule 1 Cap PO BID 11/19/17 Rx Cipro (Ciprofloxacin Hcl) 500 Mg Tablet 1 Tab PO BID 09/05/17 Rx Harrington 5-325 Tablet (Hydrocodone Bit/Acetaminophen) 1 Each Tablet 1-2 Tab PO Q4-6HRS PRN 09/05/17 Rx Medrol (Methylprednisolone) 4 Mg Tab.ds.pk 1 Pkg PO UD 09/05/17 Rx Azithromycin Tablet (Azithromycin) 250 Mg Tablet 250 Mg PO DAILY 06/21/17 Reported LAST DOSE GIVEN: DATE: TIME: NEXT DOSE DUE: DATE: TIME: Colace (Docusate Sodium) 100 Mg Capsule 1 Cap PO DAILY 06/07/17 Reported LAST DOSE GIVEN: DATE: TIME: NEXT DOSE DUE: DATE: TIME: Albuterol Sulfate Neb Soln (Albuterol Sulfate) 1.25 Mg/3 Ml Vial.neb 1 Vial NEB PRN Q6HRS PRN 06/07/17 Reported LAST DOSE GIVEN: DATE: TIME: NEXT DOSE DUE: DATE: TIME: Proair Hfa Inhaler (Albuterol Sulfate) 8.5 Gm Hfa.aer.ad 1 Puff INH PRN Q4HRS PRN 06/07/17 Reported LAST DOSE GIVEN: DATE: TIME: NEXT DOSE DUE: DATE: TIME: Spiriva (Tiotropium [place]) 18 Mcg Cap.w.dev 1 Cap IH DAILY 06/07/17 Reported LAST DOSE GIVEN: DATE: TIME: NEXT DOSE DUE: DATE: TIME: Fluticasone Propionate Nasal Spruce (Fluticasone Propionate) 16 Gm Spruce.susp 2 Spr NS DAILY 06/07/17 Reported LAST DOSE GIVEN: DATE: TIME: NEXT DOSE DUE: DATE: TIME: Cardura (Doxazosin Mesylate) 4 Mg Tablet 1 Tab PO HS 06/07/17 Reported LAST DOSE GIVEN: DATE: TIME: NEXT DOSE DUE: DATE: TIME: Oxycodone Hcl Extend.release (Oxycodone Hcl) 30 Mg Tablet 15 Mg PO AFTRNOON 12/28/16 Reported LAST DOSE GIVEN: DATE: TIME: NEXT DOSE DUE: DATE: TIME: Movantik (Naloxegol Oxalate) 25 Mg Tablet 25 Mg PO DAILY06 12/28/16 Reported LAST DOSE GIVEN: DATE: TIME: NEXT DOSE DUE: DATE: TIME: Oxycontin (Oxycodone HCl) 60 Mg Tab.er.12h 60 Mg PO BID 12/28/16 Reported LAST DOSE GIVEN: DATE: TIME: NEXT DOSE DUE: DATE: TIME: Omeprazole 40 Mg Capsule.dr 1 Cap PO DAILY 12/28/16 Reported LAST DOSE GIVEN: DATE: TIME: NEXT DOSE DUE: DATE: TIME: Lisinopril 40 Mg Tablet 40 Mg PO DAILY 12/28/16 Reported LAST DOSE GIVEN: DATE: TIME: NEXT DOSE DUE: DATE: TIME: Metoprolol Succinate ( Xl ) (Metoprolol Succinate) 25 Mg Tab.er.24h 1 Tab PO DAILY 12/28/16 Reported LAST DOSE GIVEN: DATE: TIME: NEXT DOSE DUE: DATE: TIME: Alprazolam 0.5 Mg Tablet 1 Mg PO DAILY PRN 12/28/16 Reported LAST DOSE GIVEN: DATE: TIME: NEXT DOSE DUE: DATE: TIME: Hydralazine Hcl 50 Mg Tablet 1 Tab PO TID 12/28/16 Reported LAST DOSE GIVEN: DATE: TIME: NEXT DOSE DUE: DATE: TIME: Vital Signs Date Time Temp Pulse Resp B/P (MAP) Pulse Ox O2 Delivery O2 Flow Rate FiO2 05/06/20 17:43 97.9 65 16 190/65 (106) 97 Room Air Vital Signs Date Time Temp Pulse Resp B/P (MAP) Pulse Ox O2 Delivery O2 Flow Rate FiO2 05/06/20 17:43 97.9 65 16 190/65 (106) 97 Room Air Vital Signs Date Time Temp Pulse Resp B/P (MAP) Pulse Ox O2 Delivery O2 Flow Rate FiO2 05/06/20 17:43 97.9 65 16 190/65 (106) 97 Room Air (ADITYA PARKER APRN) Course & Med Decision Making Pertinent Labs and Imaging studies reviewed. (See chart for details) [] (ADITYA PARKER APRN) Departure Departure: Impression: Primary Impression: Abdominal pain Disposition: 01 DC HOME SELF CARE/HOMELESS Condition: IMPROVED Referrals: DEBBIE TEAGUE MD (PCP) Patient Instructions: Abdominal Pain Additional Instructions: We have discussed her diagnosis of abdominal pain, after an extensive emergency room work-up we could not find a surgical nor emergent reason for your abdominal pain. I would like for you to consume a clear liquid diet for the next 24 to 48 hours and exclude dairy. Please see your doctor on Saturday if the pain persists. Otherwise return to emergency department if symptoms worsen or you have other concerns. EMERGENCY DEPARTMENT GENERAL DISCHARGE INSTRUCTIONS Thank you for coming to [facility] (ED) today and trusting us with you care. We trust that you had a positivie experience in our Emergency Department. If you wish to speak to the department management, you may call the director at [phone]. YOUR FOLLOW UP INSTRUCTIONS ARE FOLLOWS: 1. Do you have a private Doctor? If you do not have a private doctor, please ask for a resource list of physicians or clinics that may be able to assist you with follow up care. 2. The Emergency Physician has interpreted your x-rays. The X-Ray specialist will also review them. If there is a change in the findings, you will be notified in 48 hours when at all possible. 3. A lab test or culture has been done, your results will be reviewed and you will be notified if you need a change in treatment. ADDITIONAL INSTRUCTIONS AND INFORMATION: 1. Your care today has been supervised by a physician who is specially trained in emergency care. Many problems require more than one evaluation for a complete diagnosis and treatment. We recommend that you schedule your follow up appointment as recommended to ensure complete treatment of you illness or injury. If you are unable to obtain follow up care and continue to have a problem, or if your condition worsens, we recommend that you return to the ED. 2. We are not able to safely determine your condition over the phone nor are we able to give sound medical advice over the phone. For these safety reasons, if you call for medical advice we will ask you to come to the ED for further evaluation. 3. If you have any questions regarding these discharge instructions please call the ED at [phone]. SAFETY INFORMATION: In the interest of safety, wellness, and injury prevention; we encourage you to wear your sealbelt, if you smoke; quite smoking, and we encourage family to use a protective helmet for bicycling and other sporting events that present an increased risk for head injury. IF YOUR SYMPTOMS WORSEN OR NEW SYMPTOMS DEVELOP, OR YOU HAVE CONCERNS ABOUT YOUR CONDITION; OR IF YOUR CONDITION WORSENS WHILE YOU ARE WAITING FOR YOUR FOLLOW UP APPOINTMENT; EITHER CONTACT YOUR PRIMARY CARE DOCTOR, THE PHYSICIAN WHOSE NAME AND NUMBER YOU WERE GIVEN, OR RETURN TO THE ED IMMEDIATELY. Adult General HPI HPI Patient is a 70-year-old male who presents emergency department with a slow onse t of generalized abdominal pain he describes as achy that hurts all over a rating a 10/10 on a 1-10 pain scale. Patient reports that he has had his gallbladder removed and appendectomy in the past along with some low back surgeries years ago. Patient denies radiation of pain. The patient currently denies any nausea or vomiting diarrhea or constipation, patient states she has had normal bowel movements today. Patient states that nothing really makes his pain better and nothing makes it worse. Patient reports he has not taken anything for the pain today. Patient denies any other physical complaints or physical illnesses. Patient denies COVID-19 symptoms and does not wish to be checked today. (ADITYA PARKER APRN) Review of Systems Review of Systems 14 body systems of review of systems have been reviewed. See HPI for pertinent positives and negative responses, otherwise all other systems are negative, nonpertinent or noncontributory. (ADITYA PARKER APRN) Current Medications Current Medications Patient reports taking hydralazine 50 mg 3 times daily, alprazolam 0.5 mg nightly, metoprolol XL 25 mg every morning, lisinopril 40 mg q. afternoon, omep razole 40 mg every morning, oxycodone 60 mg ER twice daily, oxycodone 30 mg after each meal, Cardura 4 mg nightly, Flonase nasal spray twice daily, Spiriva q. afternoon, as needed albuterol MDI, Colace 100 mg every morning, Movantik daily bicycle 5 mg q. afternoon (ADITYA PARKER APRN) Allergies Allergies Allergies Coded Allergies Type Severity Reaction Last Updated Verified cephalexin Allergy Severe severe rash, itching 06/09/17 Yes (ADITYA PARKER APRN) Physical Exam Physical Exam Constitutional: Well developed, well nourished, no acute distress, non-toxic appearance. HENT: Normocephalic, atraumatic, bilateral external ears normal, oropharynx moist, no oral exudates, nose normal. Eyes: PERRLA, EOMI, conjunctiva normal, no discharge. Neck: Normal range of motion, no tenderness, supple, no stridor. Cardiovascular:Heart rate regular rhythm, no murmur Lungs & Thorax: Bilateral breath sounds clear to auscultation Abdomen: Bowel sounds normal, soft, no masses, no pulsatile masses. Patient obese round abdomen, pain to palpation all 4 quadrants, no rebound tenderness noted, no McBurney's point tenderness, no James sign, no psoas sign appreciated. Skin: Warm, dry, no erythema, no rash. Back: No tenderness, no CVA tenderness. Extremities: No tenderness, no cyanosis, no clubbing, ROM intact, no edema. Neurologic: Alert and oriented X 3, normal motor function, normal sensory function, no focal deficits noted. Psychologic: Affect normal, judgement normal, mood normal. (ADITYA PARKER APRN) Current Patient Data Vital Signs Vital Signs Date Time Temp Pulse Resp B/P (MAP) Pulse Ox O2 Delivery O2 Flow Rate FiO2 05/06/20 17:43 97.9 65 16 190/65 (106) 97 Room Air Lab Results Laboratory Tests Test 05/06/20 18:50 05/06/20 20:53 White Blood Count 4.9 x10^3/uL Red Blood Count 4.74 x10^6/uL Hemoglobin 14.5 g/dL Hematocrit 43.7 % Mean Corpuscular Volume 92 fL Mean Corpuscular Hemoglobin 31 pg Mean Corpuscular Hemoglobin Concent 33 g/dL Red Cell Distribution Width 14.2 % Platelet Count 126 x10^3/uL Neutrophils (%) (Auto) 69 % Lymphocytes (%) (Auto) 18 % Monocytes (%) (Auto) 9 % Eosinophils (%) (Auto) 4 % Basophils (%) (Auto) 0 % Neutrophils # (Auto) 3.4 x10^3uL Lymphocytes # (Auto) 0.9 x10^3/uL Monocytes # (Auto) 0.4 x10^3/uL Eosinophils # (Auto) 0.2 x10^3/uL Basophils # (Auto) 0.0 x10^3/uL Sodium Level 143 mmol/L Potassium Level 4.1 mmol/L Chloride Level 106 mmol/L Carbon Dioxide Level 33 mmol/L Anion Gap 4 Blood Urea Nitrogen 12 mg/dL Creatinine 0.9 mg/dL Estimated GFR (Cockcroft-Gault) 83.9 BUN/Creatinine Ratio 13 Glucose Level 88 mg/dL Calcium Level 8.5 mg/dL Total Bilirubin 0.4 mg/dL Aspartate Amino Transf (AST/SGOT) 22 U/L Alanine Aminotransferase (ALT/SGPT) 33 U/L Alkaline Phosphatase 89 U/L Total Protein 7.0 g/dL Albumin 3.2 g/dL Albumin/Globulin Ratio 0.8 Lactic Acid Level 1.1 mmol/L Lactate Dehydrogenase 196 U/L Amylase Level 67 U/L Lipase 96 U/L Current Medications Medications (Trade) Dose Ordered Sig/Dagmar Route PRN Reason Start Time Stop Time Status Last Admin Dose Admin Sodium Chloride 1,000 ml @ 1,000 mls/hr 1X ONCE IV 05/06/20 18:45 05/06/20 19:44 DC 05/06/20 18:45 Fentanyl Citrate (Fentanyl 2ml Vial) 75 mcg 1X ONCE IVP 05/06/20 18:45 05/06/20 18:54 DC 05/06/20 18:56 Ketorolac Tromethamine (Toradol 15mg Vial) 15 mg 1X ONCE IVP 05/06/20 18:45 05/06/20 18:54 DC 05/06/20 18:56 Iohexol (Omnipaque 300 Mg/ml) 75 ml 1X ONCE IV 05/06/20 19:00 05/06/20 19:01 DC 05/06/20 20:01 Ondansetron HCl (Zofran) 4 mg 1X ONCE IVP 05/06/20 19:15 05/06/20 19:16 DC 05/06/20 19:26 (ADITYA PARKER APRN) EKG EKG [] (ADITYA PARKER APRN) Radiology/Procedures Radiology/Procedures STATUS: REG ER ORD. PHYSICIAN: ADITYA PARKER APRN REASON: OMNI 300,75ML IV.DIFFUSE ABDOMEN PAIN. HX AMBER,APPY. PROCEDURE: CT ABD PELV W/ IV CONTRST ONLY Exam: CT of abdomen and pelvis with contrast INDICATION: Diffuse abdominal pain TECHNIQUE: Sequential axial images through the abdomen and pelvis obtained following the administration of 75 mL of Omni 300 IV contrast. Sagittal and coronal reformatted images were reconstructed from the axial data and reviewed. Comparisons: 05/16/2018 FINDINGS: Heart size is normal. No pericardial effusion. Visualized lung bases are clear. No pleural effusion. Stable subcapsular lesion at the right hepatic dome. Liver, spleen, pancreas and adrenals are unremarkable. Gallbladder surgically absent. No perinephric inflammation or hydronephrosis. No renal or ureteral calculi are identified. Bladder is decompressed not well evaluated. Prostate is not enlarged. Large and small bowel are unremarkable. Appendix is nonidentified. No free intra-abdominal air or fluid. No obstruction. Abdominal aorta has a normal course and caliber. There is a bypass graft at the infrarenal abdominal aorta extending to the common femoral arteries bilaterally which is patent. The [place] infrarenal abdominal aorta and iliac vessels are occluded. No enlarged abdominal lymph nodes are identified. No suspicious osseous lesions or acute fractures. IMPRESSION: No acute process identified within the abdomen or pelvis. Exposure: One or more of the following in the visualized dose reduction techniques were utilized for this examination: 1. Automated exposure control 2. Adjustment of the MA and/or KV according to patient size 3. Use of iterative of reconstructive technique Electronically signed by: Krys Durán MD (05/06/2020 8:29 PM) [facility] (ADITYA PARKER APRN) Heart Score Risk Factors: Risk Factors: DM, Current or recent (<one month) smoker, HTN, HLP, family history of CAD, obesity. Risk Scores: Score 0 - 3: 2.5% MACE over next 6 weeks - Discharge Home Score 4 - 6: 20.3% MACE over next 6 weeks - Admit for Clinical Observation Score 7 - 10: 72.7% MACE over next 6 weeks - Early Invasive Strategies (ADITYA PARKER APRN) Course & Med Decision Making Course & Med Decision Making Pertinent Labs and Imaging studies reviewed. (See chart for details) 70-year-old male patient presents emergency department with generalized abdominal pain that started earlier today slow onset, denied nausea vomiting diarrhea. Patient's vital signs are reviewed, a ER work-up was initiated, CAT scan of the abdomen was read negative for acute process by house radiologist interpretation. Labs were equivocal, there was no signs of infectious process, amylase and lipase were negative, LDH was negative, this is not a pancreatitis, bowel ischemia and mesenteric ischemia unlikely related to CT scan and negative lab results. Discussed with patient findings of CAT scan and lab results, will diagnosis with abdominal pain of unknown etiology, recommended patient a clear liquid diet for the next 24 to 48 hours and close follow-up with his primary care physician on Saturday. Patient gave verbal understanding of discharge home instructions, strict return to ER precautions and concerns, follow-up with his doctor on Saturday, patient had no further questions or concerns, patient discharged home without incident. Diagnosis abdominal pain of unknown etiology, unlikely pancreatitis, unlikely bowel ischemia, unlikely mesenteric ischemia, unlikely surgical abdomen, unlikely infectious process. (ADITYA PARKER APRN) Final Impression Final Impression [] (ADITYA PARKER APRN) Dragon Disclaimer Dragon Disclaimer This electronic medical record was generated, in whole or in part, using a voice recognition dictation system. (ADITYA PARKER APRN) Dragon Disclaimer This chart was dictated in whole or in part using Voice Recognition software in a busy, high-work load, and often noisy Emergency Department environment. It may contain unintended and wholly unrecognized errors or omissions. (QNIG SAINZ MD) Dragon Disclaimer This chart was dictated in whole or in part using Voice Recognition software in a busy, high-work load, and often noisy Emergency Department environment. It may contain unintended and wholly unrecognized errors or omissions. (QING SAINZ MD) Attending Co-Sign Attending Co-Sign The patient was seen and interviewed as well as examined at the bedside. The chart was reviewed. The case was discussed. Agree with the plan of care. (QING SAINZ MD) Problem Qualifiers Primary Impression: Abdominal pain Abdominal location: generalized Qualified Codes: R10.84 - Generalized abdominal pain ADITYA PARKER APRN May 06, 2020 18:08 QING SAINZ MD May 06, 2020 23:19
[2020-05-06] MEDS ORDERED: IV NORMAL SALINE 1,000ML 1,000 ML IV ONE (18:45)
[2020-05-06] MEDS ORDERED: KETOROLAC 15 MG/ML VIAL. IVP ONE (18:45)
[2020-05-06] MEDS ORDERED: IOHEXOL 300 MG/ML 75 ML VIAL. IV ONE (19:00)
[2020-05-06] MEDS ORDERED: ONDANSETRON PF 4 MG/2 ML VIAL. IVP ONE (19:15)
[2020-05-06 19:18] LABS: BASO % 0 % (0-3); EOS # 0.2 x10^3/uL (0.0-0.7); EOS % 4 % (0-3); HEMATOCRIT 43.7 % (39.0-53.0); HEMOGLOBIN 14.5 g/dL (13.0-17.5); LYMPH # 0.9 x10^3/uL (1.0-4.8); LYMPH % 18 % (24-48); MEAN CORPUSCULAR HEMOGLOBIN 31 pg (25-35); MEAN CORPUSCULAR HGB CONC 33 g/dL (31-37); MEAN CORPUSCULAR VOLUME 92 fL (79-100); MONO # 0.4 x10^3/uL (0.0-1.1); MONO % 9 % (0-9); NEUT # 3.4 x10^3uL (1.8-7.7); NEUT % 69 % (31-73); PLATELET COUNT 126 x10^3/uL (140-400); RED BLOOD COUNT 4.74 x10^6/uL (4.30-5.70); RED CELL DISTRIBUTION WIDTH 14.2 % (11.5-14.5); WHITE BLOOD COUNT 4.9 x10^3/uL (4.0-11.0)
[2020-05-06 19:19] LABS: CALCIUM 8.5 mg/dL (8.5-10.1); CREATININE 0.9 mg/dL (0.7-1.3); GFR 83.9; POTASSIUM 4.1 mmol/L (3.5-5.1)
[2020-05-06 19:25] LABS: ALBUMIN 3.2 g/dL (3.4-5.0); ALBUMIN/GLOBULIN RATIO 0.8 (1.0-1.7); TOTAL BILIRUBIN 0.4 mg/dL (0.2-1.0)
--- NOTE | 2020-05-06 20:32 | RAD ---
Exam: CT of abdomen and pelvis with contrast INDICATION: Diffuse abdominal pain TECHNIQUE: Sequential axial images through the abdomen and pelvis obtained following the administration of 75 mL of Omni 300 IV contrast. Sagittal and coronal reformatted images were reconstructed from the axial data and reviewed. Comparisons: 05/16/2018 FINDINGS: Heart size is normal. No pericardial effusion. Visualized lung bases are clear. No pleural effusion. Stable subcapsular lesion at the right hepatic dome. Liver, spleen, pancreas and adrenals are unremarkable. Gallbladder surgically absent. No perinephric inflammation or hydronephrosis. No renal or ureteral calculi are identified. Bladder is decompressed not well evaluated. Prostate is not enlarged. Large and small bowel are unremarkable. Appendix is nonidentified. No free intra-abdominal air or fluid. No obstruction. Abdominal aorta has a normal course and caliber. There is a bypass graft at the infrarenal abdominal aorta extending to the common femoral arteries bilaterally which is patent. 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 No enlarged abdominal lymph nodes are identified. No suspicious osseous lesions or acute fractures. IMPRESSION: No acute process identified within the abdomen or pelvis. Exposure: One or more of the following in the visualized dose reduction techniques were utilized for this examination: 1. Automated exposure control 2. Adjustment of the MA and/or KV according to patient size 3. Use of iterative of reconstructive technique Electronically signed by: Krys Durán MD (05/06/2020 8:29 PM) [facility]
[2020-05-06 21:28] LABS: AMYLASE 67 U/L (25-115); LACTATE DEHYDROGENASE 196 U/L (85-227); LIPASE 96 U/L (73-393)
[2020-05-06 21:50] VITALS: BP 174/65
== END 2020-05-06 22:00 | disposition home or self-care (01) ==
LOC: ER 17:28
DX: R10.84 Generalized abdominal pain (principal); F41.9 Anxiety disorder, unspecified; I10 Essential (primary) hypertension; G89.29 Other chronic pain; Z90.89 Acquired absence of other organs; Z88.1 Allergy status to other antibiotic agents
CPT/HCPCS: 36415; 74177; 80053; 82150; 83605; 83615; 83690; 85025; 96361; 96374; 96375; 99285; J1885; J2405; J3010; J7030; Q9967

== ENCOUNTER → 2020-05-13 | Outpatient (CLI) | payer MEDICARE ==
[2020-05-06 21:50] VITALS: BP 174/65
[~2020-05-13] MED LIST changes: +[UNRECOGNIZED DRUG - CODE]
--- NOTE | 2020-05-13 17:40 | RAD ---
Examination: CT THORAX WO History: Reason: FOLLOW UP LUNG NODULE / Spl. Instructions: / History: Comparison/Correlation: 05/08/2019 CT chest without contrast, 06/20/2017 and CTA of the chest, 7 CT chest without contrast Findings: Axial images of chest were obtained without contrast. Sagittal and coronal reformatted imag es were provided. Mild emphysematous changes involving the lung headley noted. Saber-sheath trachea noted. No infiltrate s. No pleural or pericardial effusion. No enlarged thoracic lymph nodes. Thoracic aortic morphology i s grossly unremarkable. Linear low nodule measuring about 0.4 cm is stable. Right upper lobe nodule n ear the minor fissure described previously has resolved. No new dominant nodule. T8 vertebral body an d tail are noted. No acute bony findings evident. Cholecystectomy noted. Nodular appearance of the le ft renal vein noted. Impression: No suspicious pulmonary nodule. Resolution of previously reported right upper lobe nodule. Correlate with smoking history and other risk factors for lung cancer in determining pursuing annual low-dose l tano cancer screening CT evaluation. Emphysema. PQRS Compliance Statement: One or more of the following individualized dose reduction techniques were utilized for this examinat ion: 1. Automated exposure control 2. Adjustment of the mA and/or kV according to patient size 3. Use of iterative reconstruction technique Electronically signed by: David Carmen MD (05/13/2020 5:38 PM) [id number]
== END ==
LOC: CT 12:41
PROVIDERS: ATTEND Family Medicine
DX: R91.1 Solitary pulmonary nodule (principal); J43.9 Emphysema, unspecified; Z87.891 Personal history of nicotine dependence; Z90.49 Acquired absence of other specified parts of digestive tract
CPT/HCPCS: 71250

== ENCOUNTER → 2020-08-11 | Outpatient (CLI) | payer MEDICARE ==
[~2020-08-11] MED LIST changes: -LISI40TA PO; +LISI40TA6 PO
--- NOTE | 2020-08-11 12:47 | RAD ---
EXAM: Abdomen, 2 views. HISTORY: Pain. COMPARISON: None. FINDINGS: Frontal upright and supine views of the abdomen are obtained. There is gas and stool within the colon. There are nonspecific air-filled loops of small bowel within the abdomen. There is no sima e air. There is no transition point to suggest obstruction. There are cholecystectomy clips. There ar e surgical clips within the right lower quadrant. IMPRESSION: Nonobstructive bowel gas pattern. Electronically signed by: Erna Brothers MD (08/11/2020 12:44 PM) [id number]
== END ==
LOC: RAD 12:25
PROVIDERS: ATTEND Physician Assistant
DX: R10.84 Generalized abdominal pain (principal); Z90.49 Acquired absence of other specified parts of digestive tract
CPT/HCPCS: 74019

== ENCOUNTER → 2020-08-23 | Outpatient (CLI) | payer MEDICARE ==
[~2020-08-23] MED LIST changes: +IOHEXOL 240 MG/ML 50ML VIAL. ONE; +IOHEXOL 240 MG/ML 50ML VIAL. PO ONE; +IOHEXOL 300 MG/ML 75 ML VIAL. IV ONE
--- NOTE | 2020-08-23 15:07 | RAD ---
EXAM: CT Abdomen and Pelvis with IV contrast INDICATION: Reason: RLQ/PELVIC PAIN, CONSTIPATION HX AORTIC DISSECTION,AMBER, APPY / Spl. Instruction s: CREAT 0.9 X 2 WKS AGO, OMNI 300 75ML IV OMNI 240 30ML ORAL / History: TECHNIQUE: Multi-detector row CT images were acquired from the lung bases through the abdomen and pel vis with the use of IV contrast. Sagittal and coronal images were acquired from the transaxial data. All CT scans performed at this facility utilize dose optimization techniques as appropriate to the ex am, including the following: Automated exposure control and adjustment of the mA and/or KV according to patient size (this includes techniques or standardized protocols for targeted exams where dose is indication/reason for exam). IV CONTRAST: Administered ORAL CONTRAST: Administered COMPARISON: Abdomen pelvis CT with IV contrast of 05/06/2020 FINDINGS: LOWER CHEST: Unremarkable LIVER: Unremarkable BILIARY SYSTEM: Gallbladder is surgically absent. Bile ducts are not dilated. PANCREAS: Unremarkable SPLEEN: Unremarkable ADRENALS: Unremarkable KIDNEYS & URETERS: Unremarkable BLADDER: Unremarkable REPRODUCTIVE ORGANS: Unremarkable GASTROINTESTINAL: The stomach, small bowel, and colon are unremarkable. The appendix is not well seen but there are no findings of acute appendicitis. MESENTERY/PERITONEUM/RETROPERITONEUM: Unremarkable VASCULAR: Aortobifemoral bypass graft appears patent. 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 LYMPH NODES: No adenopathy OSSEOUS & SOFT TISSUES: There is increased soft tissue along the ventral midline abdomen along the p eritoneal lining that extends from the pubic symphysis to the periumbilical soft tissues. IMPRESSION: No acute inflammatory changes are identified status post previous cholecystectomy, aortobifemoral art erial bypass and possible prior appendectomy. However, there is a tubular soft tissue structure exten ding from the pubic symphysis to the periumbilical peritoneal lining of uncertain significance but co uld represent postsurgical change. Cannot exclude a walled off fistulous tract. Correlate with clinic al findings and surgical history. Electronically signed by: Raza Johnson MD (08/23/2020 3:05 PM) [id number]
== END ==
LOC: CT 08:04
PROVIDERS: ATTEND Family Medicine
DX: K59.00 Constipation, unspecified (principal); R10.2 Pelvic and perineal pain; Z90.49 Acquired absence of other specified parts of digestive tract
CPT/HCPCS: 74177; Q9967

== ENCOUNTER 2020-12-24 12:22 | Emergency (ER) | payer MEDICARE ==
[~2020-12-24] VITALS: Ht 177.8 cm; Wt 104.8 kg
[~2020-12-24 12:22] MED LIST changes: +ATOR10TA60 PO; -IOHEXOL 240 MG/ML 50ML VIAL. ONE; -IOHEXOL 240 MG/ML 50ML VIAL. PO ONE; -IOHEXOL 300 MG/ML 75 ML VIAL. IV ONE; +MORP15TA PO; -OMEP40CA45 PO; +OMEP40CA7 PO; +TAMS0.4C97 PO
--- NOTE | 2020-12-24 13:48 | PHYS DOC ---
Past History Past Medical History: Anxiety, Hypertension, Other Additional Past Medical Histor: CHRONIC PAIN - BACK Past Surgical History: Other Additional Past Surgical Histo: BACK. KNEE SURGERY Smoking: Non-smoker Alcohol Use: None Drug Use: None General Adult EDM: Chief Complaint: COUGH HPI: HPI: Patient is a 70-year-old male presents with coughing up blood. Patient states he has had a cough and been placed on prednisone for COPD exacerbation. States he has been coughing up clear mucus but this morning he had blood. Patient is also reporting some shortness of breath but states it is normal for him with his exacerbations. Patient states he uses breathing treatments at home which help. Patient also uses 2 L nasal cannula at night. Does not wear oxygen during the day. Reports some chest pain but states only when he is coughing. Denies fever. Patient is currently been taking Mucinex and prednisone Dosepak. Patient has a history of hypertension, COPD. Review of Systems: Review of Systems: Constitutional: Denies fever or chills Eyes: Denies change in visual acuity HENT: Denies nasal congestion or sore throat Respiratory: Reports cough and shortness of breath Cardiovascular: Ports chest pain with cough GI: Denies abdominal pain, nausea, vomiting, bloody stools or diarrhea : Denies dysuria Musculoskeletal: Denies back pain or joint pain Integument: Denies rash Neurologic: Denies headache, focal weakness or sensory changes Endocrine: Denies polyuria or polydipsia Lymphatic: Denies swollen glands Psychiatric: Denies depression or anxiety Allergies: Allergies: Allergies Coded Allergies Type Severity Reaction Last Updated Verified cephalexin Allergy Severe severe rash, itching 06/09/17 Yes Uncoded Allergies Type Severity Reaction Last Updated Verified CATS Allergy Unknown 12/20/20 Physical Exam: PE: Constitutional: Well developed, well nourished, no acute distress, non-toxic appearance. [] HENT: Normocephalic, atraumatic, bilateral external ears normal, oropharynx moist, no oral exudates, nose normal. [] Eyes: PERRLA, EOMI, conjunctiva normal, no discharge. [] Neck: Normal range of motion, no tenderness, supple, no stridor. [] Cardiovascular:Heart rate regular rhythm, no murmur [] Lungs & Thorax: Bilateral breath sounds clear to auscultation [] Abdomen: Bowel sounds normal, soft, no tenderness, no masses, no pulsatile masses. [] Skin: Warm, dry, no erythema, no rash. [] Back: No tenderness, no CVA tenderness. [] Extremities: No tenderness, no cyanosis, no clubbing, ROM intact, no edema. [] Neurologic: Alert and oriented X 3, normal motor function, normal sensory function, no focal deficits noted. [] Psychologic: Affect normal, judgement normal, mood normal. [] Current Patient Data: Vital Signs: Vital Signs Date Time Temp Pulse Resp B/P (MAP) Pulse Ox O2 Delivery O2 Flow Rate FiO2 12/24/20 12:39 98.2 72 18 131/66 92 Room Air EKG: EKG: [] Radiology/Procedures: Radiology/Procedures: []AP portable chest radiograph 12/24/2020 Clinical History: Shortness of breath. An AP erect portable digital radiograph of the chest was obtained. Comparison study is dated 06/20/2017. The cardiac silhouette is mildly enlarged. The thoracic aorta is mildly tortuous. Atherosclerotic calcification thoracic aorta is seen. No acute pulmonary infiltrate is noted. No pneumothorax or pleural effusion is seen. There is diffuse osteopenia the visualized bony structures. Degenerative changes are seen involving the thoracic spine and both shoulders. IMPRESSION: No acute abnormality is seen. Electronically signed by: Miguel Martinez MD (12/24/2020 1:46 PM) [id number] PQRS Compliance Statement: One or more of the following individualized dose reduction techniques were utilized for this examination: 1. Automated exposure control 2. Adjustment of the mA and/or kV according to patient size 3. Use of iterative reconstruction technique CT CHEST WITH CONTRAST, PULMONARY ANGIOGRAM History: Reason: SOB Comparison: None. Technique: Helical CT of the chest was performed after the administration of 87 cc of Omnipaque 350 intravenous contrast according to PE protocol. Axial and coronal reconstructions were obtained. 3-D MIP images were constructed to better evaluate the pulmonary arteries. Findings: Pulmonary arteries are adequately opacified. There is no evidence of pulmonary embolism. No thoracic aortic dissection. Thyroid is symmetric. Mild bilateral gynecomastia. There is no adenopathy in the chest. There is coronary artery disease. Cardiac size is normal, no pericardial effusion. No pleural effusion is seen. There is moderate centrilobular emphysema. There are retained secretions or mucous in the trachea dependently, image 29. There are patchy groundglass and nodular opacities in the bilateral lower lobes with associated mild peribronchial thickening, for example image 108. Cholecystectomy. There are large osteophytes and bony fusion of the T8 costovertebral joints. Thoracic spine alignment is maintained. IMPRESSION: 1. There is no pulmonary embolus 2. There are patchy groundglass and nodular opacities with mild peribronchial thickening in the bilateral lower lobes that are likely infectious/inflammatory. 3. Moderate centrilobular emphysema. Electronically signed by: Trey Ram MD (12/24/2020 4:16 PM) [id number] Heart Score: C/O Chest Pain: No Risk Factors: Risk Factors: DM, Current or recent (<one month) smoker, HTN, HLP, family history of CAD, obesity. Risk Scores: Score 0 - 3: 2.5% MACE over next 6 weeks - Discharge Home Score 4 - 6: 20.3% MACE over next 6 weeks - Admit for Clinical Observation Score 7 - 10: 72.7% MACE over next 6 weeks - Early Invasive Strategies Course & Med Decision Making: Course & Med Decision Making Pertinent Labs and Imaging studies reviewed. (See chart for details) [] 70-year-old male who presents with hemoptysis. Patient has COPD and is currently on prednisone Dosepak for exacerbation. Patient states he has been coughing up clear mucus but this morning he noticed blood. Patient also reports some chest pain but only with coughing. Patient states that his symptoms are consistent with his COPD. Patient states he called his PCP this morning, Dr. Frost, who referred him to the emergency room. Patient is hemodynamically stable. Chest x-ray is unremarkable. Hemoglobin 13.5. Troponin is negative. All other labs unremarkable. CTA ordered to rule out PE or neoplasm. Dragon Disclaimer: Dragon Disclaimer: This electronic medical record was generated, in whole or in part, using a voice recognition dictation system. Departure Departure: Impression: Primary Impression: COPD exacerbation Disposition: 01 HOME / SELF CARE / HOMELESS Condition: STABLE Referrals: DEBBIE FROST MD (PCP) Patient Instructions: Hemoptysis Additional Instructions: Emergency room for coughing up blood. All of your labs were unremarkable. Your CT of your chest showed some signs of infection. I am going to start you on an antibiotic. Please continue taking your steroids. Please return to the emergency room if you have worsening symptoms or concerns. EMERGENCY DEPARTMENT GENERAL DISCHARGE INSTRUCTIONS Thank you for coming to [facility] (ED) today and trusting us with you care. We trust that you had a positivie experience in our Emergency Department. If you wish to speak to the department management, you may call the director at [phone]. YOUR FOLLOW UP INSTRUCTIONS ARE FOLLOWS: 1. Do you have a private Doctor? If you do not have a private doctor, please ask for a resource list of physicians or clinics that may be able to assist you with follow up care. 2. The Emergency Physician has interpreted your x-rays. The X-Ray specialist will also review them. If there is a change in the findings, you will be notified in 48 hours when at all possible. 3. A lab test or culture has been done, your results will be reviewed and you will be notified if you need a change in treatment. ADDITIONAL INSTRUCTIONS AND INFORMATION: 1. Your care today has been supervised by a physician who is specially trained in emergency care. Many problems require more than one evaluation for a complete diagnosis and treatment. We recommend that you schedule your follow up appointment as recommended to ensure complete treatment of you illness or injury. If you are unable to obtain follow up care and continue to have a problem, or if your condition worsens, we recommend that you return to the ED. 2. We are not able to safely determine your condition over the phone nor are we able to give sound medical advice over the phone. For these safety reasons, if you call for medical advice we will ask you to come to the ED for further evaluation. 3. If you have any questions regarding these discharge instructions please call the ED at [phone]. SAFETY INFORMATION: In the interest of safety, wellness, and injury prevention; we encourage you to wear your sealbelt, if you smoke; quite smoking, and we encourage family to use a protective helmet for bicycling and other sporting events that present an increased risk for head injury. IF YOUR SYMPTOMS WORSEN OR NEW SYMPTOMS DEVELOP, OR YOU HAVE CONCERNS ABOUT YOUR CONDITION; OR IF YOUR CONDITION WORSENS WHILE YOU ARE WAITING FOR YOUR FOLLOW UP APPOINTMENT; EITHER CONTACT YOUR PRIMARY CARE DOCTOR, THE PHYSICIAN WHOSE NAME AND NUMBER YOU WERE GIVEN, OR RETURN TO THE ED IMMEDIATELY. Scripts Levofloxacin (LEVOFLOXACIN) 500 Mg Tablet 1 TAB PO BID for copd exacerbation for 5 Days, #10 TAB Prov: KRISTAL PATEL APRN 12/24/20 KRISTAL PATEL APRN Dec 24, 2020 13:48
--- NOTE | 2020-12-24 13:48 | RAD ---
AP portable chest radiograph 12/24/2020 Clinical History: Shortness of breath. An AP erect portable digital radiograph of the chest was obtained. Comparison study is dated 06/20/2017. The cardiac silhouette is mildly enlarged. The thoracic aorta is mildly tortuous. Atherosclerotic channing cification thoracic aorta is seen. No acute pulmonary infiltrate is noted. No pneumothorax or pleural effusion is seen. There is diffuse osteopenia the visualized bony structures. Degenerative changes a re seen involving the thoracic spine and both shoulders. IMPRESSION: No acute abnormality is seen. Electronically signed by: Miguel Martinez MD (12/24/2020 1:46 PM) [id number]
[2020-12-24 14:29] LABS: BASO % 0 % (0-3); EOS # 0.1 x10^3/uL (0.0-0.7); EOS % 1 % (0-3); HEMATOCRIT 39.9 % (39.0-53.0); HEMOGLOBIN 13.5 g/dL (13.0-17.5); LYMPH # 0.7 x10^3/uL (1.0-4.8); LYMPH % 9 % (24-48); MEAN CORPUSCULAR HEMOGLOBIN 31 pg (25-35); MEAN CORPUSCULAR HGB CONC 34 g/dL (31-37); MEAN CORPUSCULAR VOLUME 91 fL (79-100); MONO # 0.6 x10^3/uL (0.0-1.1); MONO % 7 % (0-9); NEUT # 6.6 x10^3uL (1.8-7.7); NEUT % 82 % (31-73); PLATELET COUNT 135 x10^3/uL (140-400); RED BLOOD COUNT 4.37 x10^6/uL (4.30-5.70); RED CELL DISTRIBUTION WIDTH 13.7 % (11.5-14.5); WHITE BLOOD COUNT 8.1 x10^3/uL (4.0-11.0)
[2020-12-24 14:43] LABS: CALCIUM 8.6 mg/dL (8.5-10.1); CREATININE 0.9 mg/dL (0.7-1.3); GFR 83.9; POTASSIUM 4.5 mmol/L (3.5-5.1)
[2020-12-24 14:48] LABS: ALBUMIN 2.8 g/dL (3.4-5.0); ALBUMIN/GLOBULIN RATIO 0.7 (1.0-1.7); TOTAL BILIRUBIN 0.5 mg/dL (0.2-1.0); TOTAL PROTEIN 6.8 g/dL (6.4-8.2)
[2020-12-24] MEDS ORDERED: IOHEXOL 350 MG/ML 100 ML VIAL. IV ONE (15:15)
--- NOTE | 2020-12-24 16:19 | RAD ---
PQRS Compliance Statement: One or more of the following individualized dose reduction techniques were utilized for this examinat ion: 1. Automated exposure control 2. Adjustment of the mA and/or kV according to patient size 3. Use of iterative reconstruction technique CT CHEST WITH CONTRAST, PULMONARY ANGIOGRAM History: Reason: SOB Comparison: None. Technique: Helical CT of the chest was performed after the administration of 87 cc of Omnipaque 350 intravenous contrast according to PE protocol. Axial and coronal reconstructions were obtained. 3-D MIP images were constructed to better evaluate the pulmonary arteries. Findings: Pulmonary arteries are adequately opacified. There is no evidence of pulmonary embolism. No thoracic aortic dissection. Thyroid is symmetric. Mild bilateral gynecomastia. There is no adenopa thy in the chest. There is coronary artery disease. Cardiac size is normal, no pericardial effusion. No pleural effusion is seen. There is moderate centrilobular emphysema. There are retained secretions or mucous in the trachea dependently, image 29. There are patchy groundglass and nodular opacities i n the bilateral lower lobes with associated mild peribronchial thickening, for example image 108. Cholecystectomy. There are large osteophytes and bony fusion of the T8 costovertebral joints. Thoracic spine alignment is maintained. IMPRESSION: 1. There is no pulmonary embolus 2. There are patchy groundglass and nodular opacities with mild peribronchial thickening in the bila teral lower lobes that are likely infectious/inflammatory. 3. Moderate centrilobular emphysema. Electronically signed by: Trey Ram MD (12/24/2020 4:16 PM) [id number]
[2020-12-24] MEDS ORDERED: LEVO500T8 PO (17:38)
[2020-12-24 18:02] VITALS: BP 140/66
--- NOTE | 2020-12-26 11:56 | EKG ---
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
== END 2020-12-24 18:08 | disposition home or self-care (01) ==
LOC: ER 12:22
DX: J44.1 Chronic obstructive pulmonary disease with (acute) exacerbation (principal); R04.2 Hemoptysis; I10 Essential (primary) hypertension; F41.9 Anxiety disorder, unspecified; Z90.49 Acquired absence of other specified parts of digestive tract; Z88.1 Allergy status to other antibiotic agents
CPT/HCPCS: 36415; 71045; 71275; 80053; 84484; 85025; 93005; 99285; Q9967

== ENCOUNTER → 2020-12-29 | Day surgery (SDC) | payer MEDICARE ==
[~2020-12-29] MED LIST changes: +ACETAMINOPHEN 500 MG TABLET PO PRN; +BALANCED SALT IRRIG SOLN NO.2 500 ML IO ONE; +BENZONATATE 100 MG CAPSULE. PO PRN; +BRIMONIDINE 0.2% OPHTH SOLUTION 5ML BOTTLE. OS ONE; +CEFUROXIME OPHTH 4 MG/0.4 ML SYRINGE. OS ONE; +CHONDROIT-SOD-HYALURONATE KIT. OS ONE; +IBUPROFEN 200 MG TABLET PO PRN; +IPRATRPIUM/ALBUTEROL 0.5/2.5MG 3 ML NEBU. NEB PRN; +IV RINGERS SOLUTION,LACTATED 1,000 ML IV SCH; +LEVO500T8 PO; +LIDO/EPI IN BSS OPHTH 2.7 ML SYRINGE. OS ONE; +LIDOCAINE 2% JELLY 6ML IN APPLICATOR. ONE; +MIDAZOLAM HCL PF 2 MG/2 ML VIAL. IV ONE; +PHENYLEPHRINE 10% OPHTH SOLUTION 5ML BOTTLE. OS PRN; +POVIDONE-IODINE 5% OPHTH SOLUTION 30ML BOTTLE. OS ONE; +POVIDONE-IODINE 5% OPHTH SOLUTION 30ML BOTTLE. OS PRN; +PROPARACAINE 0.5% OPHTH SOLUTION 15ML BOTTLE. OS ONE; +PROPARACAINE 0.5% OPHTH SOLUTION 15ML BOTTLE. OS PRN; +prednisoLONE ACETATE 1% OPHTH SUSPENSION 5ML BOTTLE. OS ONE
[2020-12-29] MEDS: TROPICAMIDE 1% OPHTH SOLUTION 15ML BOTTLE. OS SCH ×3 (08:29→08:36)
[2020-12-29] MEDS: PHENYLEPHRINE 2.5% OPHTH SOLUTION 2ML BOTTLE. OS SCH ×3 (08:29→08:36)
[2020-12-29] MEDS: TOBRAMYCIN 0.3% OPHTH SOLUTION 5ML BOTTLE. OS SCH ×2 (08:29→08:33)
[2020-12-29] MEDS: KETOROLAC TROMETHAMINE 0.5% OPHTH SOLUTION BOTTLE. OS SCH ×2 (08:29→08:33)
--- NOTE | 2020-12-29 09:30 | PDOC4 ---
SURGEON: Maria Alejandra Flores MD Date of Procedure: 12/29/20 PREOP Diagnosis Visually significant cataract: Left Eye OS POSTOP Diagnosis Same PROCEDURE: Phaco w/ posterior chamber IOL: Left Eye OS ANESTHESIA Deep forniceal periocular 2% Lidocaine jelly Milly/retro bulbar block with 2% Lidocaine with 0.5% Marcaine DESCRIPTION OF PROCEDURE The risks, benefits, and alternatives were discussed with the patient who elected to proceed. Informed consent was obtained in writing and placed in the chart After anesthetizing the eye topically, the patient was taken to the operating room, and the operative eye was prepped and draped in the usual sterile fashion for ocular surgery. A wire lid speculum was placed. A 1-mm clear corneal paracentesis incision was created with the side-port blade at a position three o'clock hours clockwise from the temporal cornea. Then, 1% non-preserved Lidocaine with epinephrine was injected into the anterior chamber followed by viscoelastic. Cotton-tipped applicators were used to stabilize the globe, and a 2.4 mm keratome was used to create a self-sealing incision in clear cornea at the temporal limbus. The Utrata forceps were used to create a continuous curvilinear capsulorrhexis. Balanced saline solution was injected via cannula beneath the capsulorrhexis edge to hydrodissect the lens nucleus and cortex from the lens capsule. The phacoemulsification handpiece and a chopping instrument were then used to remove the lens nucleus. The remaining epinuclear material and cortex were removed with the irrigation/aspiration handpiece. Vis coelastic was used to re-inflate the lens capsule, and the intraocular lens was injected directly into the capsular bag. The corneal wound edges were hydrated with balanced salt solution on a cannula and the irrigation/aspiration handpiece was used to extract the remaining viscoelastic. Cefuroxime 0.1mg/ml / Vigamox 0.5% was injected into the anterior chamber intracamerally. The wounds were inspected and found to be watertight at an appropriate intraocular pressure. Topical antibiotic drops were placed on the corneal surface. LRI: No If Yes, Number [] [facility] [] Length [] degrees Depth [] microns Incision [facility]: 180 Toric Lens [facility] [] Patch/shield with Maxitrol/Tobradex/Erythromycin ointment: Yes No Co-managed patients/postop examination stable for co-management with referring doctor. EBL EBL: None SPECIMANS COLLECTED Specimens Collected: None MARIA ALEJANDRA FLORES MD Dec 29, 2020 09:29
[2020-12-29 09:43] VITALS: BP 143/83
== END | disposition home or self-care (01) ==
LOC: SURG 07:57
PROVIDERS: ATTEND Ophthalmology
DX: H25.89 Other age-related cataract (principal); J43.9 Emphysema, unspecified; K21.9 Gastro-esophageal reflux disease without esophagitis; N40.0 Benign prostatic hyperplasia without lower urinary tract symptoms; Z87.891 Personal history of nicotine dependence; Z79.899 Other long term (current) drug therapy; Z98.890 Other specified postprocedural states; Z88.1 Allergy status to other antibiotic agents; Z88.8 Allergy status to other drugs, medicaments and biological substances
CPT/HCPCS: 66984; J2250; V2632

== ENCOUNTER → 2021-08-01 | Outpatient (CLI) | payer MEDICARE ==
[2020-12-29 09:43] VITALS: BP 143/83
[~2021-08-01] MED LIST changes: -ACETAMINOPHEN 500 MG TABLET PO PRN; -BALANCED SALT IRRIG SOLN NO.2 500 ML IO ONE; -BENZONATATE 100 MG CAPSULE. PO PRN; -BRIMONIDINE 0.2% OPHTH SOLUTION 5ML BOTTLE. OS ONE; -CEFUROXIME OPHTH 4 MG/0.4 ML SYRINGE. OS ONE; -CHONDROIT-SOD-HYALURONATE KIT. OS ONE; -IBUPROFEN 200 MG TABLET PO PRN; -IPRATRPIUM/ALBUTEROL 0.5/2.5MG 3 ML NEBU. NEB PRN; -IV RINGERS SOLUTION,LACTATED 1,000 ML IV SCH; -LEVO500T8 PO; +LEVO500T9 PO; -LIDO/EPI IN BSS OPHTH 2.7 ML SYRINGE. OS ONE; -LIDOCAINE 2% JELLY 6ML IN APPLICATOR. ONE; -MIDAZOLAM HCL PF 2 MG/2 ML VIAL. IV ONE; +MORP-62 PO; -MORP15TA PO; -PHENYLEPHRINE 10% OPHTH SOLUTION 5ML BOTTLE. OS PRN; -POVIDONE-IODINE 5% OPHTH SOLUTION 30ML BOTTLE. OS ONE; -POVIDONE-IODINE 5% OPHTH SOLUTION 30ML BOTTLE. OS PRN; -PROPARACAINE 0.5% OPHTH SOLUTION 15ML BOTTLE. OS ONE; -PROPARACAINE 0.5% OPHTH SOLUTION 15ML BOTTLE. OS PRN; -prednisoLONE ACETATE 1% OPHTH SUSPENSION 5ML BOTTLE. OS ONE
--- NOTE | 2021-08-02 12:59 | CARD ---
MR#: [id number] Date of Study: 08/01/2021 Ordering Physician: DEBBIE TEAGUE, Referring Physician: DEBBIE TEAGUE, Tech: Michael Noe [facility] APPROVED REPORT EXAM: Two-dimensional and M-mode echocardiogram with Doppler and color Doppler. Other Information Quality : FairHR: 65bpm Rhythm : NSR INDICATION Edema RISK FACTORS Hypertension Hyperlipidemia Smoking Peripheral arterial disease. COPD 2D DIMENSIONS Left Atrium(2D)4.3 (1.6-4.0cm)IVSd1.2 (0.7-1.1cm) Aortic Root(2D)3.2 (2.0-3.7cm)LVDd5.0 (3.9-5.9cm) PWd1.2 (0.7-1.1cm)LA Rrxbuy07 (18-58mL) LVDs2.5 (2.5-4.0cm)FS (%) 49.8 % SV94.5 ml Aortic Valve AoV Peak Gage.212.8cm/sAoV VTI38.1cm AO Peak GR.18.1mmHgLVOT Peak Gage.145.7cm/s LVOT VTI 26.61cmAO Mean GR.8mmHg Mitral Valve MV E Pwfipvgi03.1cm/sMV E Peak Gr.13mmHg MV DECEL [id number] A Hmjfyxwj851.2cm/s MV E Mean Gr.4mmHgE/A Ratio0.7 Pulmonary Valve PV Peak Gksfrels504.4cm/sPV Peak Grad.8mmHg Tricuspid Valve TR P. Hzuboehx063cy/sTR Peak Gr.21mmHg Pulmonary Vein S1 Chutdppz81.8cm/sD2 Jpqphmij56.6cm/s LEFT VENTRICLE The left ventricle is normal size. There is mild concentric left ventricular hypertrophy. The left ve ntricular systolic function is normal and the ejection fraction is within normal range. LV ejection f raction is 50 to 55%. There is normal LV segmental wall motion. Transmitral Doppler flow pattern is G rade I-abnormal relaxation pattern. No left ventricle thrombus noted on this study. There is no ventr icular septal defect visualized. There is no left ventricular aneurysm. There is no mass noted in the left ventricle. RIGHT VENTRICLE The right ventricle is normal size. There is normal right ventricular wall thickness. The right ventr icular systolic function is normal. ATRIA The left atrium is mildly dilated. The right atrium size is normal. The interatrial septum is intact with no evidence for an atrial septal defect or patent foramen ovale as noted on 2-D or Doppler imagi ng. AORTIC VALVE The aortic valve is mildly sclerotic. The aortic valve is trileaflet. Doppler and Color Flow revealed no significant aortic regurgitation. There is no significant aortic valvular stenosis. There is no a ortic valvular vegetation. MITRAL VALVE The mitral valve is normal in structure and function. There is no mitral valve stenosis. Doppler and Color Flow revealed no mitral valve regurgitation noted. TRICUSPID VALVE The tricuspid valve is normal in structure and function. Doppler and Color Flow revealed trace tricus pid regurgitation. There is no tricuspid valve prolapse or vegetation. There is no tricuspid valve st enosis. PULMONIC VALVE The pulmonary valve is normal in structure and function. Doppler and Color Flow revealed no pulmonic valvular regurgitation. There is no pulmonic valvular stenosis. GREAT VESSELS The aortic root is normal in size. The ascending aorta is normal in size. The pulmonary artery is nor mal. The IVC is normal in size and collapses >50% with inspiration. PERICARDIAL EFFUSION There is no pleural effusion. There is no evidence of significant pericardial effusion. Critical Notification Critical Value: No <Conclusion> The left ventricle is normal size. The left ventricular systolic function is normal and the ejection fraction is within normal range. LV ejection fraction is 50 to 55%. There is mild concentric left ventricular hypertrophy. Doppler and Color Flow revealed no significant aortic regurgitation. There is no significant aortic valvular stenosis. Doppler and Color Flow revealed no mitral valve regurgitation noted. Doppler and Color Flow revealed trace tricuspid regurgitation. Signed by : Walker Horton MD Electronically Approved : 08/02/2021 12:59:07
== END ==
LOC: ECHO 14:55
PROVIDERS: ATTEND Family Medicine
DX: I35.1 Nonrheumatic aortic (valve) insufficiency (principal); I51.7 Cardiomegaly; R60.0 Localized edema
CPT/HCPCS: 93306

== ENCOUNTER → 2021-08-04 | Outpatient (CLI) | payer MEDICARE ==
[2020-12-29 09:43] VITALS: BP 143/83
--- NOTE | 2021-08-04 12:40 | RAD ---
EXAM: ULTRASOUND ABDOMINAL AORTA. CLINICAL HISTORY: AAA SCREENING, HTN, HX OF SMOKING COMPARISON: CT abdomen and pelvis 05/06/20 TECHNIQUE: The abdominal aorta was examined from the diaphragm to the proximal common iliac arteries. FINDINGS: Evaluation limited due to obscuring bowel gas. The proximal abdominal aorta is not visualized. The mid abdominal aorta measures 2.0 cm in AP dimension. There is no evidence of stenosis on color Do ppler. The distal abdominal aorta is not visualized. The common iliac arteries are not identified. IMPRESSION: Limited examination without evidence of aortic aneurysm of the visualized mid abdominal aorta. Given history of aortoiliac bypass grafts seen on comparison exam, CT may be of benefit for surveilla nce. Electronically signed by: Rasheed Tracy MD (08/04/2021 12:38 PM) [id number]
== END ==
LOC: US 09:00
PROVIDERS: ATTEND Family Medicine
DX: I71.4 Abdominal aortic aneurysm, without rupture (principal)
CPT/HCPCS: 76770